=== PATIENT | female | born 1930 | race Caucasian/White ===

== ENCOUNTER 2017-09-25 04:02 | Inpatient (IN) | payer MEDICARE, BC ==
[2017-09-25] VITALS (13 sets, daily range): BP systolic 105–180; BP diastolic 55–81; PULSE 65–86; RESP 16–22; TEMP 97–98; O2SAT 94–100
[~2017-09-25] VITALS: Ht 170.2 cm; Wt 58.7 kg
[~2017-09-25 04:02] MED LIST: AMLO5TAB22 PO; ARIC5TAB PO; ATOR10 PO; CALC600T34 PO; COUM5TAB PO; METO25TA6 PO; TAB-TAB PO; VITA100032 PO
[2017-09-25] MEDS ORDERED: LIDOCAINE 1%/EPINEPHrine 1:100,000 SOLN 30 ML VIAL ONE (04:20)
[2017-09-25] MEDS ORDERED: ceFAZolin 2 GM PREMIX 50 ML IV ONE (04:30)
[2017-09-25] MEDS ORDERED: DIPHTH/TETANUS/ACEL PERTUSSIS (BOOSTER) 0.5 ML VIAL/PFS IM ONE (04:30)
--- NOTE | 2017-09-25 04:40 | PD ---
HPI Chief Complaint: Fall Time Seen by Provider: 04:08 Travel History International Travel<30 days: No Contact w/Intl Traveler<30days: No Traveled to known affect area: No History of Present Illness HPI 86-year-old female brought in by ambulance from her [facility] after being found in her living room with head trauma with significant amount of blood in her residence. It is unclear exactly what happened, and the patient does not recall what happened her, however there was also blood in her bathroom. She is on Coumadin. She denies having head pain or neck pain, however is complaining of moderate lower back pain. When her dressing was removed from her scalp that was applied by EMS, there was an obvious right parietal head wound with active arterial bleeding. I was having a difficult time controlling the bleeding with direct pressure as well as [id number] sutures, so trauma surgeon Dr. Lisa was called to the bedside and was able to control the bleeding and repair the scalp wound. Patient had significant amount of blood loss on the bandages applied by EMS as well as reported blood loss in her residence. Patient also lost a significant amount of blood while in the emergency department. Because of this 2 units of emergency release PRBCs were ordered as well as [address] [facility] cervical collar was also applied in the emergency department. Again the patient does not recall exactly what happened to her and her only complaint is lower back pain. PFSH Past Medical History Arthritis: Yes Blood Disorders: No Heart Rhythm Problems: Yes (ATRIAL FLUTTER) Cancer: Yes (COLON) Cardiovascular Problems: Yes High Cholesterol: Yes Chemotherapy: Yes (1996) Endocrine: No Gastrointestinal Disorders: No Genitourinary: Yes Hypertension: Yes Immune Disorder: No Implanted Vascular Access Dvce: Yes Musculoskeletal: Yes Neurologic: Yes Psychiatric: No Reproductive: No Respiratory: No Radiation Therapy: No Tetanus Vaccination: < 5 Years Influenza Vaccination: No Past Surgical History Abdominal Surgery: Yes (PARTIAL COLECTOMY ) Body Medical Devices: HEART VALVE (PIG),LOOP RECORDER Cardiac Surgery: Yes (VALVE REPL. 09/2007) Eye Surgery: Yes (CATARACT EXTR. BILAT.) Other Surgery: Yes Social History Alcohol Use: No Tobacco Use: No Substance Use: No Allergies-Medications (Allergen,Severity, Reaction): Coded Allergies: No Known Allergies (Verified , 05/28/14) Reported Meds & Prescriptions Reported Meds & Active Scripts Active Reported Metoprolol Succinate ER 24 HR (Metoprolol Succinate) 25 Mg Tab 25 Mg PO DAILY Citalopram (Citalopram Hydrobromide) 10 Mg Tab 10 Mg PO DAILY Mapap (Acetaminophen) 325 Mg Tab 325 Mg PO Q4-6H PRN Alprazolam 0.25 Mg Tab 0.25 Mg PO Q8H PRN Warfarin 2.5 Mg Tab 2.5 Mg PO DAILY Warfarin 5 Mg Tab 5 Mg PO DAILY Review of Systems Except as stated in HPI: all other systems reviewed are Neg Physical Exam Narrative GENERAL: Well-developed, frail, elderly appearing female, awake, keeps eyes closed, right parietal scalp wound with active bleeding. SKIN: Right parietal scalp wound with active arterial bleeding. HEAD: Skin exam as above. Normocephalic. EYES: Pupils equal, round, 3 mm, reactive to light. No scleral icterus. No injection or drainage. ENT: No nasal bleeding or discharge. Mucous membranes pink and moist. NECK: Trachea midline. No JVD. CARDIOVASCULAR: Regular rate and rhythm. RESPIRATORY: No accessory muscle use. Clear to auscultation. Breath sounds equal bilaterally. GASTROINTESTINAL: Abdomen soft, non-tender, nondistended. MUSCULOSKELETAL: No obvious deformities. No clubbing. No cyanosis. No edema. NEUROLOGICAL: Awake and alert. No obvious cranial nerve deficits. Motor grossly within normal limits. Normal speech. PSYCHIATRIC: Appropriate mood and affect; insight and judgment normal. Data Data Last Documented VS Vital Signs Date Time Temp Pulse Resp B/P (MAP) Pulse Ox O2 Delivery O2 Flow Rate FiO2 09/25/17 06:58 71 18 121/55 (77) 99 09/25/17 06:19 Room Air 09/25/17 05:58 97.7 Orders Orders Lidocai-Epi 1%-1:100,000 Inj (Xylocaine- (09/25/17 04:20) Type And Screen (09/25/17 04:23) I-Stat Profile (09/25/17 04:28) Complete Blood Count With Diff (09/25/17 04:28) Prothrombin Time / Inr (Pt) (09/25/17 04:28) Act Partial Throm Time (Ptt) (09/25/17 04:28) Ct Brain W/O Iv Contrast(Rout) (09/25/17 04:28) Ct Cerv Spine W/O Contrast (09/25/17 04:28) Ct Abd/Pel W Iv Contrast(Rout) (09/25/17 04:28) Ct Thorax/ Chest W Iv Contrast (09/25/17 04:28) Ct Thor Spine W Iv Contrast (09/25/17 04:28) Ct Lumb Spine W Iv Contrast (09/25/17 04:28) Iv Access Insert/Monitor (09/25/17 04:28) Ecg Monitoring (09/25/17 04:28) Oximetry (09/25/17 04:28) Oxygen Administration (09/25/17 04:28) Cefazolin 2 Gm Premix (Ancef 2 Gm Premix (09/25/17 04:30) Yyhi-Qcg-Adkcbf (Booster) Inj (Boostrix (09/25/17 04:30) Sodium Chloride 0.9% Flush (Ns Flush) (09/25/17 04:30) Fresh Frozen Plasma (Ffp) (09/25/17 04:23) Iohexol 350 Inj (Omnipaque 350 Inj) (09/25/17 05:18) Morphine Inj (Morphine Inj) (09/25/17 06:00) Red Blood Cells (Rbc) (09/25/17 06:44) Labs Laboratory Tests Test 09/25/17 04:40 White Blood Count 11.0 TH/MM3 Red Blood Count 3.92 MIL/MM3 Hemoglobin 12.7 GM/DL Bedside Hemoglobin 11.9 G/DL Hematocrit 36.9 % Bedside Hematocrit 35.0 % Mean Corpuscular Volume 94.3 FL Mean Corpuscular Hemoglobin 32.4 PG Mean Corpuscular Hemoglobin Concent 34.3 % Red Cell Distribution Width 13.6 % Platelet Count 195 TH/MM3 Mean Platelet Volume 8.0 FL Neutrophils (%) (Auto) 83.6 % Lymphocytes (%) (Auto) 8.3 % Monocytes (%) (Auto) 5.9 % Eosinophils (%) (Auto) 1.6 % Basophils (%) (Auto) 0.6 % Neutrophils # (Auto) 9.2 TH/MM3 Lymphocytes # (Auto) 0.9 TH/MM3 Monocytes # (Auto) 0.6 TH/MM3 Eosinophils # (Auto) 0.2 TH/MM3 Basophils # (Auto) 0.1 TH/MM3 CBC Comment DIFF FINAL Differential Comment Prothrombin Time 36.1 SEC Prothromb Time International Ratio 3.6 RATIO Activated Partial Thromboplast Time 33.6 SEC Bedside Sodium 141 MMOL/L Bedside Potassium 3.8 MMOL/L Bedside Chloride 102 MMOL/L Bedside Blood Urea Nitrogen 24 MG/DL Bedside Creatinine 1.1 MG/DL Bedside Glucose 117 MG/DL [facility] Medical Decision Making Medical Screen Exam Complete: Yes Emergency Medical Condition: Yes Differential Diagnosis Intracranial hemorrhage, hemorrhagic shock, vertebral injury, intrathoracic trauma, intra-abdominal trauma Narrative Course 5:50 AM: The patient's son Armand Cornejo is at the bedside and was made aware of the patient's clinical condition. He tells me that [facility] are nursing rounds at her facility every 2 hours to check on her. The patient was given tetanus and Ancef. Patient was written for 2 units of emergency release PRBCs. Scalp wound was repaired by trauma surgeon Dr. Lisa shortly after the patient arrived to the emergency department with hemostasis. Patient's INR came back at 3.6. Patient' s son tells me that she has a porcine heart valve. Because hemostasis has been achieved and there is no intracranial hemorrhage, I decided to not give the FFP. Initial vital signs show heart rate 77, blood pressure 140/63, pulse ox 100% on room air. CBC: WBC 11, hemoglobin 11.9, hematocrit 35, platelets 195. BMP is essentially unremarkable. INR is 3.6. CT brain: CONCLUSION: 1. No acute findings in the brain. 2. Right parietal scalp injury with some gas, but no radiopaque foreign bodies. No skull fracture seen. CT cervical spine: CONCLUSION: No evidence of compression deformity or spondylolisthesis. Advanced discogenic degenerative changes C3-7. CT thorax: CONCLUSION: No acute findings in the chest. No evidence of pleural effusion or pneumothorax. CT abdomen pelvis: CONCLUSION: 1. No acute findings; the solid organs of the abdomen/pelvis are intact. 2. 5 cm fluid density structure adjacent to the urinary bladder superiorly and to the left, possibly representing a bladder diverticulum. CT thoracic spine: CONCLUSION: 1. No evidence of compression deformity or spondylolisthesis. CT lumbar spine: CONCLUSION: 1. Advanced degenerative changes throughout the lumbar spine with associated moderately severe left scoliosis and with spinal stenosis due to bony hypertrophy at the L3-4 and L4-5 levels. 2. No evidence of acute bony injury. Patient has remained hemodynamically stable. She will be admitted for further treatment and evaluation and serial hemoglobins. The patient is a patient of Dr. Greene who admits his own patients. I discussed the case with his PA LAURO who will admit the patient to their service. Diagnosis Primary Impression: Head injury Qualified Codes: S09.90XA - Unspecified injury of head, initial encounter Additional Impressions: Scalp laceration Qualified Codes: S01.01XA - Laceration without foreign body of scalp, initial encounter Acute hemorrhage Fall Qualified Codes: W19.XXXA - Unspecified fall, initial encounter Admitting Information Admitting Physician Requests: Admit Socrates Dang MD Sep 25, 2017 04:40
--- NOTE | 2017-09-25 05:01 | RADRPT ---
EXAM DATE/TIME: 09/25/2017 04:47 [facility] COMPARISON: No previous studies available for comparison. INDICATIONS : Trauma, fall. RADIATION DOSE: 66.91 CTDIvol (mGy) ; Tabletop CT Head MEDICAL HISTORY : Cardiovascular disease. Carcinoma, colon. Osteoporosis. SURGICAL HISTORY : None. ENCOUNTER: Initial ACUITY: 1 day PAIN SCALE: Non-responsive LOCATION: cranial TECHNIQUE: Multiple contiguous axial images were obtained of the head. Using automated exposure control and adj ustment of the mA and/or kV according to patient size, radiation dose was kept as low as reasonably a chievable to obtain optimal diagnostic quality images. DICOM format image data is available electro nically for review and comparison. FINDINGS: CEREBRUM: The ventricles are normal for age. There is asymmetric enlargement of the occipital horn on the left side probably related to old ischemic event. No evidence of midline shift, mass lesion, hemorrhage o r acute infarction. No extra-axial fluid collections are seen. POSTERIOR FOSSA: The cerebellum and brainstem are intact. The 4th ventricle is midline. The cerebellopontine angle i s unremarkable. EXTRACRANIAL: The visualized portion of the orbits is intact. SKULL: There is a thickening of the scalp 8 convexity parietal region with some small flecks of gas, but no radiopaque foreign bodies. The calvaria is intact. No evidence of skull fracture. CONCLUSION: 1. No acute findings in the brain. 2. Right parietal scalp injury with some gas, but no radiopaque foreign bodies. No skull fracture se en. Radhames Santana MD on September 25, 2017 at 4:58 Board Certified Radiologist. This report was verified electronically.
--- NOTE | 2017-09-25 05:04 | RADRPT ---
EXAM DATE/TIME: 09/25/2017 04:47 [facility] COMPARISON: No previous studies available for comparison. INDICATIONS : Trauma, fall. RADIATION DOSE: 16.96 CTDIvol (mGy) MEDICAL HISTORY : Cardiovascular disease. Carcinoma, colon. Osteoporosis. SURGICAL HISTORY : None. ENCOUNTER: Initial ACUITY: 1 day PAIN SCALE: Non-responsive LOCATION: neck TECHNIQUE: Volumetric scanning of the cervical spine was performed. Multiplanar reconstructions in the sagittal, coronal and oblique axial planes were performed. Using automated exposure control and adjustment o f the mA and/or kV according to patient size, radiation dose was kept as low as reasonably achievable to obtain optimal diagnostic quality images. DICOM format image data is available electronically f or review and comparison. FINDINGS: There is advanced discogenic degenerative changes in the mid and lower cervical region with disc spac e narrowing and prominent osteophytes both anterior and posterior from C3-C7. No evidence of spondyl olisthesis. The atlantoaxial articulation is intact. Normal alignment of the facet joints with mode rate severity degenerative changes. C2-C3: No fracture seen. The neural foramina are patent. C3-C4: No fracture seen. The neural foramina are patent. C4-C5: No fracture seen. The neural foramina are patent. C5-C6: No fracture seen. Severe right-sided bony neural foraminal stenosis and moderate severity left-sided stenosis. C6-C7: No fracture seen. Moderate bilateral bony neural foraminal stenosis. C7-T1: No fracture seen. The neural foramina are patent. CONCLUSION: No evidence of compression deformity or spondylolisthesis. Advanced discogenic degenerative changes C3-7. Radhames Santana MD on September 25, 2017 at 5:01 Board Certified Radiologist. This report was verified electronically.
[2017-09-25 05:11] LABS: AUTOMATED NEUTROPHIL # 9.2 TH/MM3 (1.8-7.7); BASOPHIL # 0.1 TH/MM3 (0-0.2); BASOPHIL % 0.6 % (0.0-2.0); EOSINOPHIL # 0.2 TH/MM3 (0-0.4); EOSINOPHIL % 1.6 % (0.0-4.0); HEMATOCRIT 36.9 % (35.0-46.0); HEMOGLOBIN 12.7 GM/DL (11.6-15.3); LYMPH % 8.3 % (9.0-44.0); LYMPHOCYTE # 0.9 TH/MM3 (1.0-4.8); MEAN CELL VOLUME 94.3 FL (80.0-100.0); MEAN CORPUSCULAR HEMOGLOBIN 32.4 PG (27.0-34.0); MEAN CORPUSCULAR HGB CONC 34.3 % (32.0-36.0); MONO % 5.9 % (0.0-8.0); MONOCYTE # 0.6 TH/MM3 (0-0.9); NEUT % 83.6 % (16.0-70.0); PLATELET COUNT 195 TH/MM3 (150-450); RED BLOOD COUNT 3.92 MIL/MM3 (4.00-5.30); RED CELL DISTRIBUTION WIDTH 13.6 % (11.6-17.2)
[2017-09-25] MEDS ORDERED: IOHEXOL 350 MG/ML 10 ML VIAL (for RAD DIAG) IVCONTRAST ONE (05:18)
[2017-09-25 05:24] LABS: INTERNATIONAL NORMALIZED RATIO 3.6 RATIO; PROTHROMBIN TIME - PATIENT 36.1 SEC (9.8-11.6)
--- NOTE | 2017-09-25 05:35 | RADRPT ---
EXAM DATE/TIME: 09/25/2017 05:16 [facility] COMPARISON: No previous studies available for comparison. INDICATIONS : Trauma, fall. IV CONTRAST: 100 cc Omnipaque 350 (iohexol) IV ; Cumulative dose for multiple exams. RADIATION DOSE: 15.20 CTDIvol (mGy) MEDICAL HISTORY : Cardiovascular disease. Hypertension. Osteoporosis. SURGICAL HISTORY : Pacemaker. Valve replacement. Colectomy. ENCOUNTER: Initial ACUITY: 1 day PAIN SCALE: Non-responsive LOCATION: chest TECHNIQUE: Volumetric scanning of the chest was performed. Using automated exposure control and adjustment of t he mA and/or kV according to patient size, radiation dose was kept as low as reasonably achievable to obtain optimal diagnostic quality images. DICOM format image data is available electronically for review and comparison. Follow-up recommendations for detected pulmonary nodules are based at a minimum on nodule size and pa tient risk factors according to Fleischner Society Guidelines. FINDINGS: The scan is performed with the patient's arms down. LUNGS: There is no consolidation or pneumothorax. No concerning pulmonary nodule is visualized. Biapical p leural thickening/scarring. 5 mm calcified granuloma in the right upper lung. PLEURA: There is no pleural thickening or pleural effusion. MEDIASTINUM: The heart and great vessels demonstrate no acute abnormality. There is no mediastinal or hilar lymph adenopathy. There are 2 nonenlarged calcified precarinal lymph nodes. AXILLAE: Within normal limits. No lymphadenopathy. SKELETAL: Within normal limits for patient age. MISCELLANEOUS: Evidence of prior median sternotomy and aortic valve prosthesis. CONCLUSION: No acute findings in the chest. No evidence of pleural effusion or pneumothorax. Radhames Santana MD on September 25, 2017 at 5:31 Board Certified Radiologist. This report was verified electronically.
--- NOTE | 2017-09-25 05:39 | RADRPT ---
EXAM DATE/TIME: 09/25/2017 05:16 [facility] COMPARISON: No previous studies available for comparison. INDICATIONS : Trauma, fall. IV CONTRAST: 100 cc Omnipaque 350 (iohexol) IV ; Cumulative dose for multiple exams. ORAL CONTRAST: No oral contrast ingested. RADIATION DOSE: 15.20 CTDIvol (mGy) ; Combined studies - Thorax/Abdomen/Pelvis MEDICAL HISTORY : Cardiovascular disease. Carcinoma, colon. Osteoporosis. SURGICAL HISTORY : Valve replacement. Colectomy. Hip replacement. ENCOUNTER: Initial ACUITY: 1 day PAIN SCALE: Non-responsive LOCATION: abdomen TECHNIQUE: Volumetric scanning of the abdomen and pelvis was performed. Using automated exposure control and ad justment of the mA and/or kV according to patient size, radiation dose was kept as low as reasonably achievable to obtain optimal diagnostic quality images. DICOM format image data is available electro nically for review and comparison. FINDINGS: LOWER LUNGS: The visualized lower lungs are clear. LIVER: Homogeneous density without solid lesion. 2.9 cm smooth margined cyst in the medial segment of the l eft lobe of the liver. Several other subcentimeter cysts. There is no dilation of the biliary tree. No calcified gallstones. SPLEEN: Normal size without lesion. PANCREAS: Within normal limits. KIDNEYS: Normal in size and shape. There is no mass, stone or hydronephrosis. 1.7 cm cortical cyst medial up per pole right kidney. ADRENAL GLANDS: Within normal limits. VASCULAR: There is no aortic aneurysm. BOWEL/MESENTERY: No dilated loops of small or large bowel. No evidence of free fluid or free air. ABDOMINAL WALL: Within normal limits. RETROPERITONEUM: There is no lymphadenopathy. BLADDER: No wall thickening or mass. There is a 5.2 cm smooth margin fluid density structure adjacent to the superior left urinary bladder, possibly representing a bladder diverticulum. REPRODUCTIVE: Within normal limits. INGUINAL: There is no lymphadenopathy or hernia. MUSCULOSKELETAL: Moderate curvature of the lumbar spine convex to the left with associated degenerative changes of the endplates and posterior elements. Right total hip arthroplasty. CONCLUSION: 1. No acute findings; the solid organs of the abdomen/pelvis are intact. 2. 5 cm fluid density structure adjacent to the urinary bladder superiorly and to the left, possibly representing a bladder diverticulum. Radhames Santana MD on September 25, 2017 at 5:34 Board Certified Radiologist. This report was verified electronically.
[2017-09-25] MEDS ORDERED: MORPHINE SULFATE 2 MG/ML INJ IV PUSH ONE (06:00)
[2017-09-25] MEDS ORDERED: MAPA325T PO (06:29)
[2017-09-25] MEDS ORDERED: WARF-18 PO (06:29)
[2017-09-25] MEDS ORDERED: METO1TAB42 PO (06:29)
[2017-09-25] MEDS ORDERED: ALPR0.25 PO (06:29)
[2017-09-25] MEDS ORDERED: WARF-23 PO (06:29)
[2017-09-25] MEDS ORDERED: CITA10TA4 PO (06:29)
--- NOTE | 2017-09-25 06:39 | RADRPT ---
EXAM DATE/TIME: 09/25/2017 05:16 [facility] COMPARISON: No previous studies available for comparison. INDICATIONS : Trauma, fall. IV CONTRAST: 100 cc Omnipaque 350 (iohexol) IV ; Cumulative dose for multiple exams. RADIATION DOSE: CTDIvol (mGy) ; Reconstructed from previous dataset, no dose MEDICAL HISTORY : Carcinoma, colon. Hypertension. Osteoporosis. SURGICAL HISTORY : None. ENCOUNTER: Initial ACUITY: 1 day PAIN SCALE: Non-responsive LOCATION: Paraspinal TECHNIQUE: Volumetric scanning of the lumbar spine was performed. Multiplanar reconstructions in the sagittal, coronal and oblique axial planes were performed. Using automated exposure control and adjustment of the mA and/or kV according to patient size, radiation dose was kept as low as reasonably achievable t o obtain optimal diagnostic quality images. DICOM format image data is available electronically for review and comparison. FINDINGS: There is a moderate severity scoliosis convex toward the left measuring 42. There are associated de generative changes with loss of interspace height, sclerosis of the endplates with irregularity, and vacuum phenomenon in the narrowest portions of the interspaces. No evidence of compression fracture. Advanced degenerative changes in the posterior elements. There is moderate spinal stenosis at the L3-4 level, severe spinal stenosis at L4-5. Broad-based bulging or protrusion of disc is present at L5-S1. CONCLUSION: 1. Advanced degenerative changes throughout the lumbar spine with associated moderately severe left s coliosis and with spinal stenosis due to bony hypertrophy at the L3-4 and L4-5 levels. 2. No evidence of acute bony injury. Radhames Santana MD on September 25, 2017 at 6:33 Board Certified Radiologist. This report was verified electronically.
--- NOTE | 2017-09-25 06:40 | RADRPT ---
EXAM DATE/TIME: 09/25/2017 05:16 [facility] COMPARISON: No previous studies available for comparison. INDICATIONS : Trauma, fall. IV CONTRAST: 100 cc Omnipaque 350 (iohexol) IV ; Cumulative dose for multiple exams. RADIATION DOSE: CTDIvol (mGy) ; Reconstructed from previous dataset, no dose MEDICAL HISTORY : Carcinoma, colon. Hypertension. Osteoporosis. SURGICAL HISTORY : None. ENCOUNTER: Initial ACUITY: 1 day PAIN SCALE: Non-responsive LOCATION: Paraspinal TECHNIQUE: Volumetric scanning of the thoracic spine was performed. Multiplanar reconstructions in the sagittal , coronal and oblique axial planes were performed. Using automated exposure control and adjustment o f the mA and/or kV according to patient size, radiation dose was kept as low as reasonably achievable to obtain optimal diagnostic quality images. DICOM format image data is available electronically fo r review and comparison. FINDINGS: There is a mild curvature of the lower thoracic spine convex towards the left. Prominent left-sided bridging paravertebral ossification is present at the T. 10-11 level vertebral body height is maintai earl. No evidence of compression fracture or spondylolisthesis. The pedicles are intact. The verteb ral junctions are intact. CONCLUSION: 1. No evidence of compression deformity or spondylolisthesis. Radhames Santana MD on September 25, 2017 at 6:38 Board Certified Radiologist. This report was verified electronically.
[2017-09-25] MEDS ORDERED: NALOXONE HCL 0.4 MG/ML AMP IV PUSH PRN (08:00)
[2017-09-25] MEDS ORDERED: PILL SPLITTER OTHER PRN (08:15)
[2017-09-25] MEDS ORDERED: ACETAMINOPHEN 325 MG TAB PO PRN (09:00)
[2017-09-25] MEDS ORDERED: SENNOSIDES 8.6 MG TAB PO PRN (09:00)
[2017-09-25] MEDS ORDERED: BISACODYL 10 MG SUPP RECTAL PRN (09:00)
[2017-09-25] MEDS ORDERED: MAGNESIUM HYDROXIDE SUSP 30 ML CUP PO PRN (09:00)
[2017-09-25] MEDS ORDERED: LACTULOSE SYRUP 20 GM/30 ML CUP PO PRN (09:00)
[2017-09-25] MEDS ORDERED: ONDANSETRON HCL 4 MG/2 ML VIAL IVP PRN (09:00)
[2017-09-25] MEDS: DOCUSATE SODIUM 50 MG/SENNA 8.6 MG TAB PO SCH ×2 (10:02→20:52)
[2017-09-25] MEDS: METOPROLOL SUCCINATE 25 MG EXTENDED RELEASE TAB PO SCH (10:02)
[2017-09-25] MEDS: CITALOPRAM HYDROBROMIDE 20 MG TAB PO SCH (10:03)
[2017-09-25] MEDS: SODIUM CHLOR 0.9% 1000 ML INJ 1,000 ML IV SCH ×2 (10:05→18:41)
--- NOTE | 2017-09-25 13:00 | HHI.HP ---
History of Present Illness Service [facility] Primary Care Physician Rod Greene, DO Admission Diagnosis Head injury, scalp laceration with hemorrhage, fall Diagnoses: (1) Coumadin toxicity Diagnosis: Secondary (2) H/O aortic valve replacement Diagnosis: Secondary (3) Head injury Diagnosis: Principal (4) Scalp laceration Diagnosis: Principal (5) Dementia Diagnosis: Secondary (6) Acute hemorrhage Diagnosis: Principal (7) Fall Diagnosis: Principal History of Present Illness Found down and brought to ED with scalp laceration and bleeding from scalp. Head CT R/O SDH. Bleeding treated int the ED by surgeon with suturing of laceration. Monitoring HG after blood loss eith no indication for transfusion at this time. Monitoring closely. Review of Systems ROS Limitations: Clinical Condition (Lying on ED stretcher without complaints) , Other (Sutures intact right scalp) Constitutional: DENIES: Diaphoretic episodes, Fatigue, Fever, Weight gain, Weight loss, Chills, Dizziness, Change in appetite, Night Sweats Ears, nose, mouth, throat: DENIES: Tinnitus, Hearing loss, Vertigo, Nasal discharge, Oral lesions, Throat pain, Hoarseness, Ear Pain, Running Nose, Epistaxis, Sinus Pain, Toothache, Odynophagia Respiratory: DENIES: Apneas, Cough, Snoring, Wheezing, Hemoptysis, Sputum production, Shortness of breath Cardiovascular: DENIES: Chest pain, Palpitations, Syncope, Dyspnea on Exertion , PND, Lower Extremity Edema, Orthopnea, Claudication Gastrointestinal: DENIES: Abdominal pain, Black stools, Bloody stools, Constipation, Diarrhea, Nausea, Vomiting, Difficulty Swallowing, Anorexia Musculoskeletal: DENIES: Joint pain, Muscle aches, Stiffness, Joint Swelling, Back pain, Neck pain Integumentary: DENIES: Abnormal pigmentation, Pruritus, Rash, Nail changes, Breast masses, Breast skin changes, Nipple discharge Hematologic/lymphatic: DENIES: Bruising, Lymphadenopathy Psychiatric: DENIES: Anxiety, Confusion, Mood changes, Depression, Hallucinations, Agitation, Suicidal Ideation, Homicidal Ideation, Delusions Past Family Social History Allergies: Coded Allergies: No Known Allergies (Verified , 05/28/14) Past Medical History S/P valve replacement surgery and on Coumadin; Dementia by history Reported Medications Current Medications Medications (Trade) Dose Ordered Sig/Lisset Route Start Time Stop Time Status Last Admin (NS Flush) 2 ml UNSCH PRN IVF 09/25/17 04:30 Sodium Chloride 1,000 ml @ 100 mls/hr Q10H IV 09/25/17 07:54 09/25/17 10:05 (Tylenol) 650 mg Q4H PRN PO 09/25/17 09:00 (Zofran Inj) 4 mg Q6H PRN IVP 09/25/17 09:00 (Narcan Inj) 0.4 mg UNSCH PRN IV PUSH 09/25/17 08:00 (Marylin-Colace) 1 tab BID PO 09/25/17 09:00 09/25/17 10:02 (Milk Of Magnesia Liq) 30 ml Q12H PRN PO 09/25/17 09:00 (Senokot) 17.2 mg Q12H PRN PO 09/25/17 09:00 (Dulcolax Supp) 10 mg DAILY PRN RECTAL 09/25/17 09:00 (Lactulose Liq) 30 ml DAILY PRN PO 09/25/17 09:00 (Xanax) 0.25 mg Q8H PRN PO 09/25/17 09:00 (CeleXA) 10 mg DAILY PO 09/25/17 09:00 09/25/17 10:03 (Toprol Xl) 25 mg DAILY PO 09/25/17 09:00 09/25/17 10:02 (Pill Splitter) 1 ea UNSCH PRN OTHER 09/25/17 08:15 Family History Unable to collect on adm as no family members present to answer questions. Social History Denies Cigs, ETOH. Resides with family. Physical Exam Vital Signs Vital Signs Date Time Temp Pulse Resp B/P (MAP) Pulse Ox O2 Delivery O2 Flow Rate FiO2 09/25/17 11:49 97.6 65 16 113/74 (87) 97 09/25/17 11:04 65 18 105/55 (72) 99 Room Air 09/25/17 09:05 70 18 115/63 (80) 99 Room Air 09/25/17 06:58 71 18 121/55 (77) 99 09/25/17 06:19 98 Room Air 09/25/17 06:19 98 Room Air 09/25/17 05:58 97.7 70 18 134/62 100 09/25/17 05:11 72 18 115/67 (83) 100 09/25/17 04:45 74 18 117/56 (76) 100 09/25/17 04:38 97.0 86 18 138/75 98 09/25/17 04:18 85 18 100 09/25/17 04:08 77 22 140/63 (88) 100 Physical Exam GENERAL: This is a well-nourished, well-developed patient, in no apparent distress. SKIN: Sutured laceration right scalp. HEAD: Traumatic with intact sutures. Normocephalic. EYES: Pupils equal round and reactive. Extraocular motions intact. No scleral icterus. No injection or drainage. ENT: Nose without bleeding, purulent drainage or septal hematoma. Throat without erythema, tonsillar hypertrophy or exudate. Uvula midline. Airway patent. NECK: Trachea midline. No JVD or lymphadenopathy. Supple, nontender, no meningeal signs. CARDIOVASCULAR: Regular rate and rhythm with 2/6 systolic click. RESPIRATORY: Clear to auscultation. Breath sounds equal bilaterally. No wheezes , rales, or rhonchi. GASTROINTESTINAL: Abdomen soft, non-tender, nondistended. No hepato-splenomegaly , or palpable masses. No guarding. MUSCULOSKELETAL: Extremities without clubbing, cyanosis, or edema. No joint tenderness, effusion, or edema noted. No calf tenderness. Negative Homans sign bilaterally. NEUROLOGICAL: Awake and lethargic. Cranial nerves grossly intact Laboratory Laboratory Tests Test 09/25/17 04:40 White Blood Count 11.0 Red Blood Count 3.92 Hemoglobin 12.7 Bedside Hemoglobin 11.9 Hematocrit 36.9 Bedside Hematocrit 35.0 Mean Corpuscular Volume 94.3 Mean Corpuscular Hemoglobin 32.4 Mean Corpuscular Hemoglobin Concent 34.3 Red Cell Distribution Width 13.6 Platelet Count 195 Mean Platelet Volume 8.0 Neutrophils (%) (Auto) 83.6 Lymphocytes (%) (Auto) 8.3 Monocytes (%) (Auto) 5.9 Eosinophils (%) (Auto) 1.6 Basophils (%) (Auto) 0.6 Neutrophils # (Auto) 9.2 Lymphocytes # (Auto) 0.9 Monocytes # (Auto) 0.6 Eosinophils # (Auto) 0.2 Basophils # (Auto) 0.1 CBC Comment DIFF FINAL Differential Comment Prothrombin Time 36.1 Prothromb Time International Ratio 3.6 Activated Partial Thromboplast Time 33.6 Bedside Sodium 141 Bedside Potassium 3.8 Bedside Chloride 102 Bedside Blood Urea Nitrogen 24 Bedside Creatinine 1.1 Bedside Glucose 117 Result Diagram: 09/25/17439 Imaging Last Impressions Thoracic Spine CT 09/25/17427 Signed Impressions: Service Date/Time: Monday, September 25, 2017 05:16 - CONCLUSION: 1. No evidence of compression deformity or spondylolisthesis. Radhames Santana MD Lumbar Spine CT 09/25/17427 Signed Impressions: Service Date/Time: Monday, September 25, 2017 05:16 - CONCLUSION: 1. Advanced degenerative changes throughout the lumbar spine with associated moderately severe left scoliosis and with spinal stenosis due to bony hypertrophy at the L3-4 and L4-5 levels. 2. No evidence of acute bony injury. Radhames Santana MD Head CT 09/25/17427 Signed Impressions: Service Date/Time: Monday, September 25, 2017 04:47 - CONCLUSION: 1. No acute findings in the brain. 2. Right parietal scalp injury with some gas, but no radiopaque foreign bodies. No skull fracture seen. Radhames Santana MD Chest CT 09/25/17427 Signed Impressions: Service Date/Time: Monday, September 25, 2017 05:16 - CONCLUSION: No acute findings in the chest. No evidence of pleural effusion or pneumothorax. Radhames Santana MD Cervical Spine CT 09/25/17427 Signed Impressions: Service Date/Time: Monday, September 25, 2017 04:47 - CONCLUSION: No evidence of compression deformity or spondylolisthesis. Advanced discogenic degenerative changes C3-7. Radhames Santana MD Abdomen/Pelvis CT 09/25/17427 Signed Impressions: Service Date/Time: Monday, September 25, 2017 05:16 - CONCLUSION: 1. No acute findings; the solid organs of the abdomen/pelvis are intact. 2. 5 cm fluid density structure adjacent to the urinary bladder superiorly and to the left, possibly representing a bladder diverticulum. Radhames Santana MD Capkevoni VTE Risk Assessment Caprini VTE Risk Assessment: Mod/High Risk (score >= 2) VTE Pharm Contraindication: Coagulopathy,INR elevated Caprini Risk Assessment Model Point Value = 1 Point Value = 2 Point Value = 3 Point Value = 5 Age 41-60 Minor surgery BMI > 25 kg/m2 Swollen legs Varicose veins or History of unexplained or recurrent spontaneous Oral contraceptives or hormone replacement Sepsis (< 1 month) Serious lung disease, including pneumonia (< 1 month) Abnormal pulmonary function Acute myocardial infarction Congestive heart failure (< 1 month) History of inflammatory bowel disease Medical patient at bed rest Age 61-74 Arthroscopic surgery Major open surgery (> 45 min) Laparoscopic surgery (> 45 min) Malignancy Confined to bed (> 72 hours) Immobilizing plaster cast Central venous access Age >= 75 History of VTE Family history of VTE Factor V Leiden Prothrombin [id number] Lupus anticoagulant Anticardiolipin antibodies Elevated serum homocysteine Heparin-induced thrombocytopenia Other congenital or acquired thrombophilia Stroke (< 1 month) Elective arthroplasty Hip, pelvis, or leg fracture Acute spinal cord injury (< 1 month) Prophylaxis Regimen Total Risk Factor Score Risk Level Prophylaxis Regimen 0-1 Low Early ambulation 2 Moderate Order ONE of the following: *Sequential Compression Device (SCD) *Heparin 5000 units SQ BID 3-4 Higher Order ONE of the following medications: *Heparin 5000 units SQ TID *Enoxaparin/Lovenox 40 mg SQ daily (WT < 150 kg, CrCl > 30 mL/min) *Enoxaparin/Lovenox 30 mg SQ daily (WT < 150 kg, CrCl > 10-29 mL/min) *Enoxaparin/Lovenox 30 mg SQ BID (WT < 150 kg, CrCl > 30 mL/min) AND/OR *Sequential Compression Device (SCD) 5 or more Highest Order ONE of the following medications: *Heparin 5000 units SQ TID (Preferred with Epidurals) *Enoxaparin/Lovenox 40 mg SQ daily (WT < 150 kg, CrCl > 30 mL/min) *Enoxaparin/Lovenox 30 mg SQ daily (WT < 150 kg, CrCl > 10-29 mL/min) *Enoxaparin/Lovenox 30 mg SQ BID (WT < 150 kg, CrCl > 30 mL/min) AND *Sequential Compression Device (SCD) Assessment and Plan Problem List: (1) Scalp laceration ICD Codes: S01.01XA - Laceration without foreign body of scalp, initial encounter Status: Acute Plan: Monitor neuro checks and hold Coumadin for now (2) Acute hemorrhage ICD Codes: R58 - Hemorrhage, not elsewhere classified Status: Acute Plan: Monitor HG closely (3) Dementia ICD Codes: F03.90 - Dementia Status: Acute Plan: Cont home meds and monitor (4) Coumadin toxicity ICD Codes: T45.511A - Poisoning by anticoagulants, accidental (unintentional), initial encounter Plan: Hold Coumadin until INR 3 or less. Assessment and Plan S/P fall with hemorrhage from laceration now sutured. Head CT R/O SDH. Monitoring closely. Coumadin on hold since INR is elevated. F/U in the AM. Discussed Condition With Patient Discharge Planning HBOme when stable and Hg stable post bleeding and back in Coumadin Problem Qualifiers (1) Coumadin toxicity: Qualified Codes: T45.511A - Poisoning by anticoagulants, accidental ( unintentional), initial encounter (2) Head injury: Qualified Codes: S09.90XA - Unspecified injury of head, initial encounter (3) Scalp laceration: Qualified Codes: S01.01XA - Laceration without foreign body of scalp, initial encounter (4) Dementia: Qualified Codes: G30.1 - Alzheimer's disease with late onset; F02.80 - Dementia in other diseases classified elsewhere without behavioral disturbance (5) Fall: Qualified Codes: W19.XXXA - Unspecified fall, initial encounter Gabriel Gardner Sep 25, 2017 13:00
[2017-09-25] MEDS: ALPRAZolam 0.25 MG TAB PO PRN ×2 (14:40→22:35)
[2017-09-26] VITALS (7 sets, daily range): BP systolic 117–171; BP diastolic 64–87; PULSE 59–89; RESP 17–18; TEMP 97.2–98.4; O2SAT 94–98
[2017-09-26] MEDS: SODIUM CHLOR 0.9% 1000 ML INJ 1,000 ML IV SCH ×3 (05:00→23:54)
[2017-09-26 06:45] LABS: AUTOMATED NEUTROPHIL # 7.9 TH/MM3 (1.8-7.7); BASOPHIL % 0.2 % (0.0-2.0); EOSINOPHIL % 0.3 % (0.0-4.0); HEMATOCRIT 36.1 % (35.0-46.0); HEMOGLOBIN 12.7 GM/DL (11.6-15.3); LYMPH % 7.8 % (9.0-44.0); LYMPHOCYTE # 0.7 TH/MM3 (1.0-4.8); MEAN CELL VOLUME 91.3 FL (80.0-100.0); MEAN CORPUSCULAR HEMOGLOBIN 32.2 PG (27.0-34.0); MEAN CORPUSCULAR HGB CONC 35.3 % (32.0-36.0); MONO % 7.2 % (0.0-8.0); MONOCYTE # 0.7 TH/MM3 (0-0.9); NEUT % 84.5 % (16.0-70.0); PLATELET COUNT 123 TH/MM3 (150-450); RED BLOOD COUNT 3.95 MIL/MM3 (4.00-5.30); RED CELL DISTRIBUTION WIDTH 14.4 % (11.6-17.2); WHITE BLOOD COUNT 9.3 TH/MM3 (4.0-11.0)
[2017-09-26 07:08] LABS: PROTHROMBIN TIME - PATIENT 30.2 SEC (9.8-11.6)
[2017-09-26 07:13] LABS: ALBUMIN 3.2 GM/DL (3.4-5.0); AST (GOT) 38 U/L (15-37); BICARBONATE 26.8 MEQ/L (21.0-32.0); BLOOD UREA NITROGEN 21 MG/DL (7-18); CALCIUM 8.7 MG/DL (8.5-10.1); CHLORIDE 105 MEQ/L (98-107); CREATININE 1.05 MG/DL (0.50-1.00); GLOMERULAR FILTRATION RATE 49 ML/MIN (>89); GLUCOSE,RANDOM 92 MG/DL (74-106); SODIUM (NA) 141 MEQ/L (136-145)
[2017-09-26 07:17] LABS: ALKALINE PHOSPHATASE 41 U/L (45-117); ALT (GPT) 19 U/L (10-53); TOTAL BILIRUBIN ADULT 3.3 MG/DL (0.2-1.0); TOTAL PROTEIN 5.7 GM/DL (6.4-8.2)
[2017-09-26] MEDS: CITALOPRAM HYDROBROMIDE 20 MG TAB PO SCH (08:52)
[2017-09-26] MEDS: DOCUSATE SODIUM 50 MG/SENNA 8.6 MG TAB PO SCH ×2 (08:52→21:17)
[2017-09-26] MEDS: METOPROLOL SUCCINATE 25 MG EXTENDED RELEASE TAB PO SCH (08:52)
[2017-09-26] MEDS: ALPRAZolam 0.25 MG TAB PO PRN (08:52)
--- NOTE | 2017-09-26 14:00 | HHI.PR ---
Subjective Remarks She is resting comfortably in bed. No family at bedside but I was informed yesterday she was trying to climb out of bed and family noted this was not her usual affect. Neuro consult requested. Objective Vital Signs Date Time Temp Pulse Resp B/P (MAP) Pulse Ox O2 Delivery O2 Flow Rate FiO2 09/26/17 12:40 98.4 69 18 138/64 (88) 98 09/26/17 08:44 97.7 67 18 168/82 (110) 98 09/26/17 06:27 78 171/87 (115) 09/26/17 05:21 98.0 86 18 94 09/26/17 00:36 97.9 89 18 144/66 (92) 94 09/25/17 20:13 98.0 71 17 129/62 (84) 94 09/25/17 16:05 97.5 74 20 142/64 (90) 100 I/O 09/25/17 09/25/17 09/25/17 09/26/17 09/26/17 09/26/17 07:00 15:00 23:00 07:00 15:00 23:00 Intake Total 880 ml 845 ml 240 ml Balance 880 ml 845 ml 240 ml Intake Oral 240 ml IV Total 50 ml 845 ml Packed Cells 800 ml Blood Product IV Normal Saline Flush 30 ml # Voids 4 Result Diagram: 09/26/1752409/26/17524 Imaging Last Impressions Thoracic Spine CT 09/25/17427 Signed Impressions: Service Date/Time: Monday, September 25, 2017 05:16 - CONCLUSION: 1. No evidence of compression deformity or spondylolisthesis. Radhames Santana MD Lumbar Spine CT 09/25/17427 Signed Impressions: Service Date/Time: Monday, September 25, 2017 05:16 - CONCLUSION: 1. Advanced degenerative changes throughout the lumbar spine with associated moderately severe left scoliosis and with spinal stenosis due to bony hypertrophy at the L3-4 and L4-5 levels. 2. No evidence of acute bony injury. Radhames Santana MD Head CT 09/25/178 Signed Impressions: Service Date/Time: Monday, September 25, 2017 04:47 - CONCLUSION: 1. No acute findings in the brain. 2. Right parietal scalp injury with some gas, but no radiopaque foreign bodies. No skull fracture seen. Radhames Snatana MD Chest CT 09/25/17427 Signed Impressions: Service Date/Time: Monday, September 25, 2017 05:16 - CONCLUSION: No acute findings in the chest. No evidence of pleural effusion or pneumothorax. Radhames Santana MD Cervical Spine CT 09/25/17427 Signed Impressions: Service Date/Time: Monday, September 25, 2017 04:47 - CONCLUSION: No evidence of compression deformity or spondylolisthesis. Advanced discogenic degenerative changes C3-7. Radhames Santana MD Abdomen/Pelvis CT 09/25/17427 Signed Impressions: Service Date/Time: Monday, September 25, 2017 05:16 - CONCLUSION: 1. No acute findings; the solid organs of the abdomen/pelvis are intact. 2. 5 cm fluid density structure adjacent to the urinary bladder superiorly and to the left, possibly representing a bladder diverticulum. Radhames Santana MD Objective Remarks General - Lying flat in bed and responsive to questions HEENT - Laceration right scalp with intact sutures RESP - CTA CV - RRR without murmur rub or gallop Abd - Soft and nontender Extremities - FROM without deformity Medications and IVs Current Medications Medications (Trade) Dose Ordered Sig/Lisset Route Start Time Stop Time Status Last Admin (NS Flush) 2 ml UNSCH PRN IVF 09/25/17 04:30 Sodium Chloride 1,000 ml @ 100 mls/hr Q10H IV 09/25/17 07:54 09/26/17 05:00 (Tylenol) 650 mg Q4H PRN PO 09/25/17 09:00 (Zofran Inj) 4 mg Q6H PRN IVP 09/25/17 09:00 (Narcan Inj) 0.4 mg UNSCH PRN IV PUSH 09/25/17 08:00 (Marylin-Colace) 1 tab BID PO 09/25/17 09:00 09/26/17 08:52 (Milk Of Magnesia Liq) 30 ml Q12H PRN PO 09/25/17 09:00 (Senokot) 17.2 mg Q12H PRN PO 09/25/17 09:00 (Dulcolax Supp) 10 mg DAILY PRN RECTAL 09/25/17 09:00 (Lactulose Liq) 30 ml DAILY PRN PO 09/25/17 09:00 (Xanax) 0.25 mg Q8H PRN PO 09/25/17 09:00 09/26/17 08:52 (CeleXA) 10 mg DAILY PO 09/25/17 09:00 09/26/17 08:52 (Toprol Xl) 25 mg DAILY PO 09/25/17 09:00 09/26/17 08:52 (Pill Splitter) 1 ea UNSCH PRN OTHER 09/25/17 08:15 Assessment and Plan Problem List: (1) Scalp laceration ICD Codes: S01.01XA - Laceration without foreign body of scalp, initial encounter Status: Acute Plan: Monitor neuro checks and hold Coumadin for now. Hg down to 9.3 from 11. Will (2) Acute hemorrhage ICD Codes: R58 - Hemorrhage, not elsewhere classified Status: Acute Plan: Monitor HG closely. Hg 9.3. and INR down to 3. Will hold one more day on starting warfarin pending Neuro consult (3) Dementia ICD Codes: F03.90 - Dementia Status: Acute Plan: Cont home meds and monitor. F/U Neuro consult (4) Coumadin toxicity ICD Codes: T45.511A - Poisoning by anticoagulants, accidental (unintentional), initial encounter Plan: Hold Coumadin until INR 3 or less. INR down to 3 but will hold one more day to resume warfarin until Neuro consult done. F/U labs in the AM. Assessment and Plan S/P fall with hemorrhage from laceration now sutured. Head CT R/O SDH. Monitoring closely. Coumadin on hold since INR is elevated. F/U in the AM. Discharge Planning Home when stable Problem Qualifiers (1) Scalp laceration: Qualified Codes: S01.01XA - Laceration without foreign body of scalp, initial encounter (2) Dementia: Qualified Codes: G30.1 - Alzheimer's disease with late onset; F02.80 - Dementia in other diseases classified elsewhere without behavioral disturbance (3) Coumadin toxicity: Qualified Codes: T45.511A - Poisoning by anticoagulants, accidental ( unintentional), initial encounter Gabriel Gardner Sep 26, 2017 14:00
--- NOTE | 2017-09-26 16:48 | MB ---
cc: Graciela Ortega MD DATE OF CONSULT: REASON FOR CONSULTATION: Dementia, possible worsening dementia, head injury, fall. HISTORY OF PRESENT ILLNESS: The patient is an 86-year-old woman who was found down and brought to the ED with scalp laceration. She had a CT of the head that did not show a subdural. She was treated and sutured and monitoring her H and H afterwards. She has a significant history of dementia, valve replacement, on Coumadin. HOME MEDICATIONS: Metoprolol, citalopram, acetaminophen, Xanax, and warfarin. ALLERGIES: NONE REPORTED. SOCIAL HISTORY: She states she lives with her . No tobacco, alcohol, or substance abuse. SURGICAL HISTORY: Colectomy partial, loop recorder, heart valve, cataracts. PHYSICAL EXAMINATION: VITALS: Her temperature is 98.4, pulse 69, respiratory rate 18, blood pressure 138/64. NECK: Supple. I do not appreciate any carotid bruits. HEART: Regular. NEUROLOGIC: She is awake and alert. She knows she is in [facility]. She knows her date of . She does not know the month, she thinks it is August. She is not sure of the year. She cannot tell me the day of the week, she states she does not pay attention to that. Speech is normal. Pupils reactive. Face is symmetrical. Motor-fernández, I do not see any weakness. Cerebellar is normal. Toes withdraw. Reflexes are 1+. Gait, I am going to withhold at this time. LABORATORY STUDIES: Reviewed. Her platelets have dropped from 195,000 to 123,000. Coagulation panel: Her INR yesterday was 3.6; today, it is 3.0. Chemistries: Creatinine 1.05 with a GFR of 49, AST 38, ALT 19, albumin 3.2. She did have a CT of the head that shows nothing acute, right parietal scalp injury but no foreign bodies. Cervical spine: No fracture or deformity. IMPRESSION: History of dementia in an 86-year-old woman, etiology of her fall is unknown. She was a bit elevated on her INR. I would hold her Coumadin until her INR is below 3, watch her hemoglobin and hematocrit. I will go ahead and get an electroencephalogram. Not sure if she has been on any medicines for her dementia, but that is something we can certainly address once she is discharged in the office. Check a B12, a TSH, a T4 on her and if her electroencephalogram and labs are normal and no issues with gait with physical therapy, from my perspective she can be discharged home. Gladly see her in the office to discuss other options, such as Aricept and/or Namenda for dementia if she has never been on those 2 medications. Thank you for allowing me to participate in her care. Graciela Ortega MD DF/TI , 04:30 PM , 04:47 PM
[2017-09-27 00:40] VITALS: BP 169/94; PULSE 57; RESP 17; TEMP 98; O2SAT 98
[2017-09-27 05:10] VITALS: BP 163/77; PULSE 58; RESP 17; TEMP 97.6; O2SAT 98
[2017-09-27 08:00] VITALS: BP 188/86; PULSE 72; RESP 18; TEMP 97.5; O2SAT 97
[2017-09-27] MEDS: METOPROLOL SUCCINATE 25 MG EXTENDED RELEASE TAB PO SCH (08:53)
[2017-09-27] MEDS: CITALOPRAM HYDROBROMIDE 20 MG TAB PO SCH (08:53)
[2017-09-27] MEDS: ALPRAZolam 0.25 MG TAB PO PRN (08:53)
[2017-09-27] MEDS: DOCUSATE SODIUM 50 MG/SENNA 8.6 MG TAB PO SCH ×2 (08:53→22:04)
[2017-09-27] MEDS: SODIUM CHLORIDE 0.9% FLUSH 10 ML FLUSH IVF PRN (08:53)
[2017-09-27] MEDS: SODIUM CHLOR 0.9% 1000 ML INJ 1,000 ML IV SCH ×2 (08:54→22:01)
[2017-09-27 09:36] LABS: AUTOMATED NEUTROPHIL # 6.4 TH/MM3 (1.8-7.7); BASOPHIL % 0.6 % (0.0-2.0); EOSINOPHIL # 0.3 TH/MM3 (0-0.4); EOSINOPHIL % 3.8 % (0.0-4.0); HEMATOCRIT 37.7 % (35.0-46.0); HEMOGLOBIN 13.2 GM/DL (11.6-15.3); LYMPH % 9.4 % (9.0-44.0); LYMPHOCYTE # 0.8 TH/MM3 (1.0-4.8); MEAN CELL VOLUME 91.6 FL (80.0-100.0); MEAN CORPUSCULAR HEMOGLOBIN 32.1 PG (27.0-34.0); MEAN CORPUSCULAR HGB CONC 35.1 % (32.0-36.0); MEAN PLATELET VOLUME 8.4 FL (7.0-11.0); MONO % 8.6 % (0.0-8.0); MONOCYTE # 0.7 TH/MM3 (0-0.9); NEUT % 77.6 % (16.0-70.0); PLATELET COUNT 142 TH/MM3 (150-450); RED BLOOD COUNT 4.11 MIL/MM3 (4.00-5.30); RED CELL DISTRIBUTION WIDTH 14.4 % (11.6-17.2); WHITE BLOOD COUNT 8.3 TH/MM3 (4.0-11.0)
[2017-09-27 09:48] LABS: PROTHROMBIN TIME - PATIENT 16.9 SEC (9.8-11.6)
[2017-09-27 09:53] LABS: INTERNATIONAL NORMALIZED RATIO 1.7 RATIO
[2017-09-27 10:16] LABS: ALBUMIN 3.1 GM/DL (3.4-5.0); AST (GOT) 39 U/L (15-37); BICARBONATE 27.5 MEQ/L (21.0-32.0); BLOOD UREA NITROGEN 17 MG/DL (7-18); CALCIUM 8.5 MG/DL (8.5-10.1); CHLORIDE 109 MEQ/L (98-107); CREATININE 1.01 MG/DL (0.50-1.00); GLOMERULAR FILTRATION RATE 52 ML/MIN (>89); GLUCOSE,RANDOM 84 MG/DL (74-106); SODIUM (NA) 142 MEQ/L (136-145)
--- NOTE | 2017-09-27 10:22 | HHI.PR ---
Subjective Remarks Found in bed, alert, pleasantly confused Objective Vital Signs Date Time Temp Pulse Resp B/P (MAP) Pulse Ox O2 Delivery O2 Flow Rate FiO2 09/27/17 08:00 97.5 72 18 188/86 (120) 97 09/27/17 05:10 97.6 58 17 163/77 (105) 98 09/27/17 00:40 98.0 57 17 169/94 (119) 98 09/26/17 21:00 97.8 60 17 117/72 (87) 95 09/26/17 16:33 97.2 59 18 149/74 (99) 97 09/26/17 12:40 98.4 69 18 138/64 (88) 98 I/O 09/26/17 09/26/17 09/26/17 09/27/17 09/27/17 09/27/17 07:00 15:00 23:00 07:00 15:00 23:00 Intake Total 1240 ml 660 ml 1000 ml 240 ml Balance 1240 ml 660 ml 1000 ml 240 ml Intake Oral 240 ml 660 ml 240 ml IV Total 1000 ml 1000 ml # Voids 4 4 3 # Bowel Movements 1 Result Diagram: 09/27/17 0842 09/26/17 0525 Other Results GENERAL: This is a well-nourished, well-developed patient, in no apparent distress. SKIN: Sutured laceration right scalp HEAD: Traumatic with intact sutures. Normocephalic. Hair matted to right EYES: Pupils equal round and reactive. Extraocular motions intact. No scleral icterus. No injection or drainage. ENT: Nose without bleeding, purulent drainage NECK: Trachea midline. No JVD CARDIOVASCULAR: Regular rate and rhythm with 2/6 systolic click. RESPIRATORY: Clear to auscultation. Breath sounds equal bilaterally. No wheezes , rales, or rhonchi. GASTROINTESTINAL: Abdomen soft, non-tender, nondistended. No hepato-splenomegaly , or palpable masses. No guarding. MUSCULOSKELETAL: Extremities without clubbing, cyanosis, or edema. Neuro- Awake and alert, Medications and IVs Current Medications Medications (Trade) Dose Ordered Sig/Lisset Route Start Time Stop Time Status Last Admin (NS Flush) 2 ml UNSCH PRN IVF 09/25/17 04:30 09/27/17 08:53 Sodium Chloride 1,000 ml @ 100 mls/hr Q10H IV 09/25/17 07:54 09/27/17 08:54 (Tylenol) 650 mg Q4H PRN PO 09/25/17 09:00 (Zofran Inj) 4 mg Q6H PRN IVP 09/25/17 09:00 (Narcan Inj) 0.4 mg UNSCH PRN IV PUSH 09/25/17 08:00 (Marylin-Colace) 1 tab BID PO 09/25/17 09:00 09/27/17 08:53 (Milk Of Magnesia Liq) 30 ml Q12H PRN PO 09/25/17 09:00 (Senokot) 17.2 mg Q12H PRN PO 09/25/17 09:00 (Dulcolax Supp) 10 mg DAILY PRN RECTAL 09/25/17 09:00 (Lactulose Liq) 30 ml DAILY PRN PO 09/25/17 09:00 (Xanax) 0.25 mg Q8H PRN PO 09/25/17 09:00 09/27/17 08:53 (CeleXA) 10 mg DAILY PO 09/25/17 09:00 09/27/17 08:53 (Toprol Xl) 25 mg DAILY PO 09/25/17 09:00 09/27/17 08:53 (Pill Splitter) 1 ea UNSCH PRN OTHER 09/25/17 08:15 Assessment and Plan Problem List: (1) Scalp laceration ICD Codes: S01.01XA - Laceration without foreign body of scalp, initial encounter Status: Acute Plan: Sutures intact to Right side of head (2) H/O aortic valve replacement ICD Codes: Z95.2 - Presence of prosthetic heart valve Plan: INR today 1.7, will restart Coumadin, Monitor INR. (3) Dementia ICD Codes: F03.90 - Dementia Status: Acute Plan: Seen by Neurology, will follow up as outpatient Discharge Planning Consult CM for SNF placement Problem Qualifiers (1) Scalp laceration: Qualified Codes: S01.01XA - Laceration without foreign body of scalp, initial encounter (2) Dementia: Qualified Codes: G30.1 - Alzheimer's disease with late onset; F02.80 - Dementia in other diseases classified elsewhere without behavioral disturbance Kassie Mccabe Sep 27, 2017 10:22
[2017-09-27 10:44] LABS: ALKALINE PHOSPHATASE 41 U/L (45-117); ALT (GPT) 19 U/L (10-53); FREE T4 0.97 NG/DL (0.76-1.46); TOTAL BILIRUBIN ADULT 3.3 MG/DL (0.2-1.0); TOTAL PROTEIN 6.1 GM/DL (6.4-8.2)
[2017-09-27 12:00] VITALS: BP 141/65; PULSE 59; RESP 18; TEMP 97.8; O2SAT 98
[2017-09-27 14:29] LABS: INTERNATIONAL NORMALIZED RATIO 1.5 RATIO; PROTHROMBIN TIME - PATIENT 15.1 SEC (9.8-11.6)
[2017-09-27 16:00] VITALS: BP 169/76; PULSE 65; RESP 18; TEMP 97.5; O2SAT 97
[2017-09-27] MEDS: WARFARIN SOD 2 MG TAB PO SCH (16:05)
[2017-09-27 20:00] VITALS: BP 162/70; PULSE 58; RESP 20; TEMP 97.5; O2SAT 98
[2017-09-28] VITALS (7 sets, daily range): BP systolic 142–196; BP diastolic 73–88; PULSE 57–120; RESP 18–20; TEMP 97–99.1; O2SAT 96–100
[2017-09-28 07:08] LABS: AUTOMATED NEUTROPHIL # 3.9 TH/MM3 (1.8-7.7); BASOPHIL # 0.1 TH/MM3 (0-0.2); BASOPHIL % 1.3 % (0.0-2.0); EOSINOPHIL # 0.3 TH/MM3 (0-0.4); EOSINOPHIL % 5.4 % (0.0-4.0); HEMATOCRIT 27.7 % (35.0-46.0); HEMOGLOBIN 9.7 GM/DL (11.6-15.3); LYMPH % 11.6 % (9.0-44.0); LYMPHOCYTE # 0.6 TH/MM3 (1.0-4.8); MEAN CELL VOLUME 92.6 FL (80.0-100.0); MEAN CORPUSCULAR HEMOGLOBIN 32.3 PG (27.0-34.0); MEAN CORPUSCULAR HGB CONC 34.9 % (32.0-36.0); MEAN PLATELET VOLUME 7.6 FL (7.0-11.0); MONO % 9.5 % (0.0-8.0); MONOCYTE # 0.5 TH/MM3 (0-0.9); NEUT % 72.2 % (16.0-70.0); PLATELET COUNT 115 TH/MM3 (150-450); RED CELL DISTRIBUTION WIDTH 14.5 % (11.6-17.2); WHITE BLOOD COUNT 5.5 TH/MM3 (4.0-11.0)
[2017-09-28 07:19] LABS: INTERNATIONAL NORMALIZED RATIO 1.5 RATIO; PROTHROMBIN TIME - PATIENT 15.4 SEC (9.8-11.6)
[2017-09-28 07:55] LABS: BICARBONATE 22.8 MEQ/L (21.0-32.0); CALCIUM 5.9 MG/DL (8.5-10.1); CREATININE 0.69 MG/DL (0.50-1.00)
[2017-09-28 08:31] LABS: TOTAL PROTEIN 4.3 GM/DL (6.4-8.2)
[2017-09-28 08:37] LABS: CALCIUM-PROTEIN CORRECTED 7.2 MG/DL (8.5-10.1)
--- NOTE | 2017-09-28 08:37 | MG ---
cc: Low Vidal MD # [id number] SUBJECTIVE: This is an 86-year-old woman, dizziness, hypercholesterolemia. MEDICATIONS: Celexa, Toprol, Xanax. DESCRIPTION: On recording there is a low amplitude beta rhythm. Occasional diffuse low amplitude 7 hertz rhythms are noted. No hemisphere asymmetries are seen. No epileptiform or seizure activity is noted. Photic stimulation is performed, without significant posterior driving. IMPRESSION: Normal awake EEG. No evidence for a focal or diffuse abnormality. MD DARYA Mancilla/NURYS , 07:59 PM , 09:40 PM
--- NOTE | 2017-09-28 09:10 | HHI.PR ---
Subjective Remarks Noted to be more confused today. Objective Vital Signs Date Time Temp Pulse Resp B/P (MAP) Pulse Ox O2 Delivery O2 Flow Rate FiO2 09/28/17 08:00 98.2 71 18 195/86 (122) 96 09/28/17 04:00 97.5 120 20 175/82 (113) 98 09/28/17 00:00 97.0 61 18 142/80 (100) 99 09/27/17 20:00 97.5 58 20 162/70 (100) 98 09/27/17 16:00 97.5 65 18 169/76 (107) 97 09/27/17 12:00 97.8 59 18 141/65 (90) 98 I/O 09/27/17 09/27/17 09/27/17 09/28/17 09/28/17 09/28/17 07:00 15:00 23:00 07:00 15:00 23:00 Intake Total 240 ml Balance 240 ml Intake Oral 240 ml # Voids 3 4 # Bowel Movements 1 1 Result Diagram: 09/28/17 0650 09/28/17 0650 Objective Remarks GENERAL: This is a well-nourished, well-developed patient, in no apparent distress. SKIN: Sutured laceration right scalp HEAD: Traumatic with intact sutures. Normocephalic EYES: Pupils equal round and reactive. Extraocular motions intact. No scleral icterus. No injection or drainage. ENT: Nose without bleeding, purulent drainage NECK: Trachea midline. No JVD CARDIOVASCULAR: Regular rate and rhythm with 2/6 systolic click. RESPIRATORY: Clear to auscultation. Breath sounds equal bilaterally. No wheezes , rales, or rhonchi. GASTROINTESTINAL: Abdomen soft, non-tender, nondistended. No hepato-splenomegaly , or palpable masses. No guarding. MUSCULOSKELETAL: Extremities without clubbing, cyanosis, or edema. Neuro- Awake and alert Medications and IVs Current Medications Medications (Trade) Dose Ordered Sig/Lisset Route Start Time Stop Time Status Last Admin (NS Flush) 2 ml UNSCH PRN IVF 09/25/17 04:30 09/28/17 09:45 Sodium Chloride 1,000 ml @ 100 mls/hr Q10H IV 09/25/17 07:54 09/28/17 09:45 (Tylenol) 650 mg Q4H PRN PO 09/25/17 09:00 09/27/17 16:06 (Zofran Inj) 4 mg Q6H PRN IVP 09/25/17 09:00 (Narcan Inj) 0.4 mg UNSCH PRN IV PUSH 09/25/17 08:00 (Marylin-Colace) 1 tab BID PO 09/25/17 09:00 09/28/17 09:45 (Milk Of Magnesia Liq) 30 ml Q12H PRN PO 09/25/17 09:00 (Senokot) 17.2 mg Q12H PRN PO 09/25/17 09:00 (Dulcolax Supp) 10 mg DAILY PRN RECTAL 09/25/17 09:00 (Lactulose Liq) 30 ml DAILY PRN PO 09/25/17 09:00 (Xanax) 0.25 mg Q8H PRN PO 09/25/17 09:00 09/28/17 09:45 (CeleXA) 10 mg DAILY PO 09/25/17 09:00 09/28/17 09:45 (Toprol Xl) 25 mg DAILY PO 09/25/17 09:00 09/28/17 09:45 (Pill Splitter) 1 ea UNSCH PRN OTHER 09/25/17 08:15 (Coumadin) 2 mg DAILY@16 PO 09/27/17 16:00 09/27/17 16:05 Potassium Chloride 100 ml @ 50 mls/hr Q2H IV 09/28/17 09:30 09/28/17 13:29 Calcium Gluconate 1 gm/Sodium Chloride 100 ml @ 100 mls/hr ONCE ONCE IV 09/28/17 11:00 09/28/17 11:59 (Oscal) 500 mg Q12HR PO 09/28/17 21:00 (KCl) 10 meq BID PO 09/28/17 21:00 Assessment and Plan Problem List: (1) Scalp laceration ICD Codes: S01.01XA - Laceration without foreign body of scalp, initial encounter Status: Acute Plan: Sutures intact to Right side of head (2) Hypocalcemia ICD Codes: E83.51 - Hypocalcemia Plan: Replace calcium recheck in am (3) Hypokalemia ICD Codes: E87.6 - Hypokalemia Plan: Replace potassium recheck in am. (4) H/O aortic valve replacement ICD Codes: Z95.2 - Presence of prosthetic heart valve Plan: Coumadin restarted, cont to monitor. (5) Dementia ICD Codes: F03.90 - Dementia Status: Acute Plan: History of dementia, seen by neurology, will f/u outpatient Discharge Planning DC to snf once electrolytes stable Problem Qualifiers (1) Scalp laceration: Qualified Codes: S01.01XA - Laceration without foreign body of scalp, initial encounter (2) Dementia: Qualified Codes: G30.1 - Alzheimer's disease with late onset; F02.80 - Dementia in other diseases classified elsewhere without behavioral disturbance Kassie Mccabe Sep 28, 2017 09:10
[2017-09-28] MEDS: SODIUM CHLOR 0.9% 1000 ML INJ 1,000 ML IV SCH ×2 (09:45→15:54)
[2017-09-28] MEDS: CITALOPRAM HYDROBROMIDE 20 MG TAB PO SCH (09:45)
[2017-09-28] MEDS: METOPROLOL SUCCINATE 25 MG EXTENDED RELEASE TAB PO SCH (09:45)
[2017-09-28] MEDS: DOCUSATE SODIUM 50 MG/SENNA 8.6 MG TAB PO SCH ×2 (09:45→21:00)
[2017-09-28] MEDS: SODIUM CHLORIDE 0.9% FLUSH 10 ML FLUSH IVF PRN (09:45)
[2017-09-28] MEDS: ALPRAZolam 0.25 MG TAB PO PRN ×2 (09:45→19:45)
[2017-09-28] MEDS: POTASSIUM CHLOR 20 MEQ PREMIX 100 ML IV SCH ×2 (10:38→18:06)
[2017-09-28] MEDS ORDERED: CALCIUM GLUCONATE INJ 1 GM in SODIUM CHLORIDE 0.9% INJ 90 ML IV ONE (11:00)
[2017-09-28] MEDS: WARFARIN SOD 2 MG TAB PO SCH (16:30)
[2017-09-28] MEDS: CALCIUM CARBONATE 1.25 GM (CA 500 MG) TAB PO SCH (19:45)
[2017-09-28] MEDS: POTASSIUM CHLORIDE 10 MEQ CAP PO SCH (21:29)
--- NOTE | 2017-09-28 23:49 | RADRPT ---
EXAM DATE/TIME: 09/28/2017 23:27 [facility] COMPARISON: CT BRAIN W/O CONTRAST, September 25, 2017, 4:47. INDICATIONS : Altered mental status. RADIATION DOSE: 56.35 CTDIvol (mGy) MEDICAL HISTORY : Hypertension. Carcinoma, colon. SURGICAL HISTORY : None. ENCOUNTER: Initial ACUITY: 1 day PAIN SCALE: 0/10 LOCATION: cranial TECHNIQUE: Multiple contiguous axial images were obtained of the head. Using automated exposure control and adj ustment of the mA and/or kV according to patient size, radiation dose was kept as low as reasonably a chievable to obtain optimal diagnostic quality images. DICOM format image data is available electro nically for review and comparison. FINDINGS: CEREBRUM: There is generalized atrophy. Ventricles are normal in size. There is mild periventricular white caryl er low attenuation. Encephalomalacia is present in the left occipital lobe in a periventricular regio n. No evidence of midline shift, mass lesion, hemorrhage or acute infarction. No extra-axial fluid collections are seen. POSTERIOR FOSSA: The cerebellum and brainstem demonstrate no acute finding. There is likely stable encephalomalacia in the right cerebellum. The 4th ventricle is midline. The cerebellopontine angle is unremarkable. EXTRACRANIAL: Visualized sinuses are clear. The right scalp soft tissue swelling has decreased. SKULL: The calvaria is intact. No evidence of skull fracture. CONCLUSION: 1. No acute intracranial abnormality is identified. 2. Chronic changes include generalized atrophy and chronic periventricular white matter changes cee cteristic of chronic microvascular ischemia. There is stable encephalomalacia in the left occipital l obe and right cerebellum. 3. Decreased right scalp swelling. Collin Chavez MD on September 28, 2017 at 23:43 Board Certified Radiologist. This report was verified electronically.
[2017-09-28] MEDS: amLODIPine BESYLATE 5 MG TAB PO SCH (23:59)
[2017-09-29] VITALS (9 sets, daily range): BP systolic 135–193; BP diastolic 60–89; PULSE 52–84; RESP 17–20; TEMP 97.4–98.6; O2SAT 94–99
[2017-09-29] MEDS: SODIUM CHLOR 0.9% 1000 ML INJ 1,000 ML IV SCH ×3 (01:54→21:06)
[2017-09-29] MEDS: ALPRAZolam 0.25 MG TAB PO PRN (04:36)
[2017-09-29 06:39] LABS: AUTOMATED NEUTROPHIL # 6.5 TH/MM3 (1.8-7.7); BASOPHIL % 0.4 % (0.0-2.0); EOSINOPHIL # 0.4 TH/MM3 (0-0.4); EOSINOPHIL % 4.6 % (0.0-4.0); HEMOGLOBIN 12.6 GM/DL (11.6-15.3); LYMPH % 7.9 % (9.0-44.0); LYMPHOCYTE # 0.7 TH/MM3 (1.0-4.8); MEAN CELL VOLUME 91.7 FL (80.0-100.0); MEAN CORPUSCULAR HEMOGLOBIN 32.1 PG (27.0-34.0); MEAN PLATELET VOLUME 7.5 FL (7.0-11.0); MONO % 7.9 % (0.0-8.0); MONOCYTE # 0.7 TH/MM3 (0-0.9); NEUT % 79.2 % (16.0-70.0); PLATELET COUNT 183 TH/MM3 (150-450); RED BLOOD COUNT 3.93 MIL/MM3 (4.00-5.30); RED CELL DISTRIBUTION WIDTH 14.3 % (11.6-17.2); WHITE BLOOD COUNT 8.2 TH/MM3 (4.0-11.0)
[2017-09-29 06:53] LABS: INTERNATIONAL NORMALIZED RATIO 1.2 RATIO; PROTHROMBIN TIME - PATIENT 11.8 SEC (9.8-11.6)
--- NOTE | 2017-09-29 06:56 | HHI.PR ---
Subjective Remarks Very confused this am,in restraints nurse reports not sleeping all night Objective Vital Signs Date Time Temp Pulse Resp B/P (MAP) Pulse Ox O2 Delivery O2 Flow Rate FiO2 09/29/17 06:03 97.7 75 20 150/69 (96) 94 09/29/17 01:44 97.4 84 20 193/89 (123) 94 09/28/17 21:59 97.4 76 20 196/88 (124) 96 09/28/17 16:26 98.0 64 18 170/73 (105) 100 09/28/17 12:38 99.1 57 18 170/74 (106) 98 09/28/17 12:00 59 09/28/17 08:00 98.2 71 18 195/86 (122) 96 I/O 09/28/17 09/28/17 09/28/17 09/29/17 09/29/17 09/29/17 07:00 15:00 23:00 07:00 15:00 23:00 # Voids 4 10 7 # Bowel Movements 1 3 1 Result Diagram: 09/29/17 0606 09/28/17 0650 Imaging Last [address] 09/28/17 0000 Signed Impressions: Service Date/Time: Thursday, September 28, 2017 23:27 - CONCLUSION: 1. No acute intracranial abnormality is identified. 2. Chronic changes include generalized atrophy and chronic periventricular white matter changes characteristic of chronic microvascular ischemia. There is stable encephalomalacia in the left occipital lobe and right cerebellum. 3. Decreased right scalp swelling. Collin Chavez MD Objective Remarks GENERAL: This is a well-nourished, well-developed patient, in wrist restraints SKIN: Sutured laceration right scalp HEAD: Traumatic with intact sutures. Normocephalic EYES: Pupils equal round and reactive. Extraocular motions intact. No scleral icterus. No injection or drainage. ENT: Nose without bleeding, purulent drainage NECK: Trachea midline. No JVD CARDIOVASCULAR: Regular rate with 2/6 systolic click. RESPIRATORY: Clear to auscultation. Breath sounds equal bilaterally. No wheezes , rales, or rhonchi. GASTROINTESTINAL: Abdomen soft, non-tender, nondistended. No hepato-splenomegaly , or palpable masses. No guarding. MUSCULOSKELETAL: Extremities without clubbing, cyanosis, or edema. Neuro- Awake and alert x self Medications and IVs Current Medications Medications (Trade) Dose Ordered Sig/Lisset Route Start Time Stop Time Status Last Admin (NS Flush) 2 ml UNSCH PRN IVF 09/25/17 04:30 09/28/17 09:45 Sodium Chloride 1,000 ml @ 100 mls/hr Q10H IV 09/25/17 07:54 09/28/17 09:45 (Tylenol) 650 mg Q4H PRN PO 09/25/17 09:00 09/27/17 16:06 (Zofran Inj) 4 mg Q6H PRN IVP 09/25/17 09:00 (Narcan Inj) 0.4 mg UNSCH PRN IV PUSH 09/25/17 08:00 (Marylin-Colace) 1 tab BID PO 09/25/17 09:00 09/28/17 09:45 (Milk Of Magnesia Liq) 30 ml Q12H PRN PO 09/25/17 09:00 (Senokot) 17.2 mg Q12H PRN PO 09/25/17 09:00 (Dulcolax Supp) 10 mg DAILY PRN RECTAL 09/25/17 09:00 (Lactulose Liq) 30 ml DAILY PRN PO 09/25/17 09:00 (Xanax) 0.25 mg Q8H PRN PO 09/25/17 09:00 09/29/17 04:36 (CeleXA) 10 mg DAILY PO 09/25/17 09:00 09/28/17 09:45 (Toprol Xl) 25 mg DAILY PO 09/25/17 09:00 09/28/17 09:45 (Pill Splitter) 1 ea UNSCH PRN OTHER 09/25/17 08:15 (Coumadin) 2 mg DAILY@16 PO 09/27/17 16:00 09/28/17 16:30 (Oscal) 500 mg Q12HR PO 09/28/17 21:00 09/28/17 19:45 (KCl) 10 meq BID PO 09/28/17 21:00 09/28/17 21:29 (Norvasc) 5 mg BID PO 09/28/17 21:00 09/28/17 23:59 Assessment and Plan Problem List: (1) Scalp laceration ICD Codes: S01.01XA - Laceration without foreign body of scalp, initial encounter Status: Acute Plan: Sutures intact to Right side of head (2) Hypocalcemia ICD Codes: E83.51 - Hypocalcemia Plan: Replaced, pending today results (3) Hypokalemia ICD Codes: E87.6 - Hypokalemia Plan: Replaced, on supplement results pending this am (4) H/O aortic valve replacement ICD Codes: Z95.2 - Presence of prosthetic heart valve Plan: Coumadin restarted, cont to monitor. (5) Dementia ICD Codes: F03.90 - Dementia Status: Acute Plan: History of dementia, seen by neurology, will f/u outpatient increasingly confused, CT negative for any acute changes (6) Urinary frequency ICD Codes: R35.0 - Frequency of micturition Plan: Nurse voices up multiple times to urinate w/ little amounts. UA ordered/ Problem Qualifiers (1) Scalp laceration: Qualified Codes: S01.01XA - Laceration without foreign body of scalp, initial encounter (2) Dementia: Qualified Codes: G30.1 - Alzheimer's disease with late onset; F02.80 - Dementia in other diseases classified elsewhere without behavioral disturbance Kassie Mccabe Sep 29, 2017 06:56
[2017-09-29 07:08] LABS: BICARBONATE 28.8 MEQ/L (21.0-32.0); CALCIUM 9.3 MG/DL (8.5-10.1); CREATININE 1.03 MG/DL (0.50-1.00)
[2017-09-29] MEDS: CITALOPRAM HYDROBROMIDE 20 MG TAB PO SCH (08:40)
[2017-09-29] MEDS: amLODIPine BESYLATE 5 MG TAB PO SCH ×2 (08:40→21:05)
[2017-09-29] MEDS: CALCIUM CARBONATE 1.25 GM (CA 500 MG) TAB PO SCH ×2 (08:41→21:05)
[2017-09-29] MEDS: METOPROLOL SUCCINATE 25 MG EXTENDED RELEASE TAB PO SCH (08:41)
[2017-09-29] MEDS: DOCUSATE SODIUM 50 MG/SENNA 8.6 MG TAB PO SCH ×2 (08:42→21:00)
[2017-09-29] MEDS: POTASSIUM CHLORIDE 10 MEQ CAP PO SCH ×2 (08:42→21:06)
[2017-09-29 10:15] LABS: BILIRUBIN, URINE NEG (NEG); BLOOD, URINE NEG (NEG); GLUCOSE,URINE NEG (NEG); KETONE, URINE NEG (NEG); MUCUS URINE FEW /lpf (OCC); NITRITE,URINE NEG (NEG); SQUAMOUS EPITHELIAL CELL URINE 1 /hpf (0-5); URINE COLOR LIGHT-YELLOW (YELLW/STRAW); URINE LEUKOCYTE ESTERASE NEG (NEG)
[2017-09-29] MEDS: WARFARIN SOD 2 MG TAB PO SCH (15:41)
[2017-09-29] MEDS: risperiDONE 0.25 MG TAB PO SCH (21:05)
[2017-09-30] VITALS: BP 163/77; PULSE 68; RESP 19; TEMP 97.4; O2SAT 99
[2017-09-30 04:00] VITALS: BP 157/69; PULSE 61; RESP 18; TEMP 96.4; O2SAT 98
[2017-09-30] MEDS: SODIUM CHLOR 0.9% 1000 ML INJ 1,000 ML IV SCH (05:41)
[2017-09-30] MEDS: METOPROLOL SUCCINATE 25 MG EXTENDED RELEASE TAB PO SCH (08:31)
[2017-09-30] MEDS: DOCUSATE SODIUM 50 MG/SENNA 8.6 MG TAB PO SCH (08:31)
[2017-09-30] MEDS: CITALOPRAM HYDROBROMIDE 20 MG TAB PO SCH (08:31)
[2017-09-30] MEDS: risperiDONE 0.25 MG TAB PO SCH (08:31)
[2017-09-30] MEDS: amLODIPine BESYLATE 5 MG TAB PO SCH (08:31)
[2017-09-30] MEDS: CALCIUM CARBONATE 1.25 GM (CA 500 MG) TAB PO SCH (08:31)
[2017-09-30] MEDS: POTASSIUM CHLORIDE 10 MEQ CAP PO SCH (08:32)
[2017-09-30 08:35] VITALS: BP 126/68; PULSE 67; RESP 18; TEMP 97.5; O2SAT 100
[2017-09-30 08:39] VITALS: PULSE 65
[2017-09-30] MEDS ORDERED: RISP.25 PO (08:55)
--- NOTE | 2017-09-30 09:01 | HHI.DS ---
Discharge Summary Admission Date Sep 25, 2017 at 07:22 Admitting Diagnosis Head injury, scalp laceration with hemorrhage, fall CBC/BMP: 09/29/17 0606 09/29/17 0606 Significant Findings Laboratory Tests Test 09/27/17 13:35 09/28/17 06:50 09/29/17 06:06 09/29/17 09:40 Prothrombin Time 15.1 SEC (9.8-11.6) 15.4 SEC (9.8-11.6) 11.8 SEC (9.8-11.6) Red Blood Count 3.00 MIL/MM3 (4.00-5.30) 3.93 MIL/MM3 (4.00-5.30) Hemoglobin 9.7 GM/DL (11.6-15.3) Hematocrit 27.7 % (35.0-46.0) Platelet Count 115 TH/MM3 (150-450) Neutrophils (%) (Auto) 72.2 % (16.0-70.0) 79.2 % (16.0-70.0) Monocytes (%) (Auto) 9.5 % (0.0-8.0) Eosinophils (%) (Auto) 5.4 % (0.0-4.0) 4.6 % (0.0-4.0) Lymphocytes # (Auto) 0.6 TH/MM3 (1.0-4.8) 0.7 TH/MM3 (1.0-4.8) Random Glucose 61 MG/DL (74-106) Total Protein 4.3 GM/DL (6.4-8.2) Calcium Level 5.9 MG/DL (8.5-10.1) Sodium Level 147 MEQ/L (136-145) Potassium Level 2.8 MEQ/L (3.5-5.1) Chloride Level 118 MEQ/L (98-107) Estimat Glomerular Filtration Rate 80 ML/MIN (>89) 51 ML/MIN (>89) Protein Corrected Calcium 7.2 MG/DL (8.5-10.1) Lymphocytes (%) (Auto) 7.9 % (9.0-44.0) Creatinine 1.03 MG/DL (0.50-1.00) Urine Mucus FEW /lpf (OCC) PE at Discharge GENERAL: This is a well-nourished, well-developed patient, in wrist restraints SKIN: Sutured laceration right scalp HEAD: Traumatic with intact sutures. Normocephalic EYES: Pupils equal round and reactive. Extraocular motions intact. No scleral icterus. No injection or drainage. ENT: Nose without bleeding, purulent drainage NECK: Trachea midline. No JVD CARDIOVASCULAR: Regular rate with 2/6 systolic click. RESPIRATORY: Clear to auscultation. Breath sounds equal bilaterally. No wheezes , rales, or rhonchi. GASTROINTESTINAL: Abdomen soft, non-tender, nondistended. No hepato-splenomegaly , or palpable masses. No guarding. MUSCULOSKELETAL: Extremities without clubbing, cyanosis, or edema. Neuro- Awake and alert x self Hospital Course Presented s/p fall with head laceration, sutured in ER, blood transfusion was not required. Patient on Coumadin. Does have history of dementia seen by Neuro, will follow up as outpatient. She was started on Risperdal 2.5 bis for increase behaviors and hallucinations. She also had episode of HTN, Norvasc added to home medications. Coumadin restated on 09/28/17. Pt Condition on Discharge: Stable Discharge Disposition: Discharge to SNF Discharge Instructions DIET: Follow Instructions for: As Tolerated, No Restrictions Activities you can perform: Regular-No Restrictions Follow up Referrals: Appointment for Follow Up - [address] Ortega New Medications: Amlodipine (Norvasc) 5 Mg Tab 5 MG PO BID for Blood Pressure Management for 30 Days, #60 TAB Risperidone (Risperdal) 0.25 Mg Tab 0.25 MG PO Q12HR for Rash for 30 Days, TAB Continued Medications: Acetaminophen (Mapap) 325 Mg Tab 325 MG PO Q4-6H PRN for PAIN SCALE 1 TO 2, TAB 0 Refills Alprazolam (Alprazolam) 0.25 Mg Tab 0.25 MG PO Q8H PRN for ANXIETY, TAB 0 Refills Citalopram (Citalopram) 10 Mg Tab 10 MG PO DAILY for Control Depression, #30 TAB 0 Refills Metoprolol Succinate ER 24 HR (Metoprolol Succinate ER 24 HR) 25 Mg Tab 25 MG PO DAILY, #30 TAB 0 Refills Warfarin (Warfarin) 5 Mg Tab 5 MG PO DAILY for Blood Clot Prevention, #30 TAB 0 Refills Warfarin (Warfarin) 2.5 Mg Tab 2.5 MG PO DAILY for Blood Clot Prevention, #30 TAB 0 Refills Additional Information PT/INR qday until INR therapeutic. Coumadin restarted on 09/28/17. Kassie Mccabe Sep 30, 2017 09:01
[2017-09-30] MEDS ORDERED: AMLO5 PO (09:02)
[2017-09-30 09:44] LABS: AUTOMATED NEUTROPHIL # 5.4 TH/MM3 (1.8-7.7); BASOPHIL % 0.3 % (0.0-2.0); EOSINOPHIL # 0.3 TH/MM3 (0-0.4); EOSINOPHIL % 4.9 % (0.0-4.0); HEMOGLOBIN 16.6 GM/DL (11.6-15.3); LYMPH % 8.5 % (9.0-44.0); LYMPHOCYTE # 0.6 TH/MM3 (1.0-4.8); MEAN CELL VOLUME 92.8 FL (80.0-100.0); MEAN CORPUSCULAR HEMOGLOBIN 32.2 PG (27.0-34.0); MEAN CORPUSCULAR HGB CONC 34.7 % (32.0-36.0); MEAN PLATELET VOLUME 7.6 FL (7.0-11.0); MONO % 5.9 % (0.0-8.0); MONOCYTE # 0.4 TH/MM3 (0-0.9); NEUT % 80.4 % (16.0-70.0); PLATELET COUNT 209 TH/MM3 (150-450); RED BLOOD COUNT 5.17 MIL/MM3 (4.00-5.30); RED CELL DISTRIBUTION WIDTH 14.5 % (11.6-17.2); WHITE BLOOD COUNT 6.8 TH/MM3 (4.0-11.0)
[2017-09-30 09:51] LABS: INTERNATIONAL NORMALIZED RATIO 1.4 RATIO; PROTHROMBIN TIME - PATIENT 13.8 SEC (9.8-11.6)
[2017-09-30 09:57] LABS: BICARBONATE 24.7 MEQ/L (21.0-32.0); CREATININE 0.96 MG/DL (0.50-1.00)
--- NOTE | 2017-10-04 19:42 | PQ ---
Physician Query Response Document PATIENT: CHRISTOPHER HOLCOMB : 1930 ADMIT DATE: 09/25/2017 7:22 AM DISCH DATE: 09/30/2017 11:07 AM RESPONDING PROVIDER #: Michael QUERY TEXT: Clarification of Clinical Diagnostic Findings Coumadin-induced acute hemorrhage in setting of post fall scalp laceration treated emergently w/ 2 un its of PRBCs and trauma surgeon consult. Other explanation of clinical findings. Unable to determine (no explanation for clinical findings). Please clarify and document your clinical opinion in the progress notes and discharge summary includi ng the definitive and/or presumptive diagnosis (suspected or probable), related to the above clinical findings. Please include clinical findings supporting your diagnosis. Thank you, Tamara Arechiga CDS: Tamara Arechiga Patient Unit: [id number] Contact Number: Room: [facility] The patient's Clinical Indicators include: * Clinical Indicators: INR 3.6, difficulty controlling significant blood loss * Risk Factors: Coumadin w/ INR 3.6 * Treatment: 2 units of emergency release PRBCs were ordered as well as 2 units of FFP, difficult raymond e controlling the bleeding with direct pressure as well as irmqrf-nj-itvax sutures, requiring trauma surgeon to repair scalp wound Query created by: Tamara Arechiga on 09/27/2017 12:00 AM RESPONSE TEXT: Pt had copious bleeding from a scalp laceration while taking coumadin with a supratheraputic INR of 3 .6 requiring transfusion of two units PRBC Electronically signed by: Rod Greene MD 10/04/2017 7:38 PM
--- NOTE | 2017-10-28 19:46 | PD.OP ---
Operative Report Date of Surgery: Sep 25, 2017 Preoperative Diagnosis: 5 cm parietal scalp laceration Postoperative Diagnosis: 5 cm parietal scalp laceration Procedure: Intermediate closure of 5 cm parietal scalp laceration with control of hemorrhage Anesthesia: None Surgeon: Johnson Lisa Scrap Materials Buyer(s): NONE Resident Surgeon: None Operation and Findings: I was called to address a 5 cm parietal scalp laceration that was actively bleeding despite attempted closure. On arrival there was bleeding through the wound despite interrupted [id number] suture is placed in the skull. The sutures were removed the wound was opened and inspected it was irrigated out. Hemostasis was obtained by applying 3-0 Vicryl sutures in the subcutaneous tissue where the vessels were identified. The wound was deemed hemostatic at this point. Because she was supratherapeutic on Coumadin the wound was closed with running 3-0 Prolene suture instead of lisa. The wound was again inspected and deemed hemostatic. She tolerated the procedure well there were no complications. Johnson Lisa MD Oct 28, 2017 19:46
== END 2017-09-30 11:07 | DRG 983 ==
LOC: NEPE 04:02 → NEDA 07:22 → NEDH 11:25 → N05A 12:34
PROVIDERS: ADMIT Family Medicine; ATTEND Family Medicine
PROC: 0W300ZZ Control Bleeding in Head, Open Approach (ICD-10-PCS; principal; 2017-09-25)
PROC: 0HQ0XZZ Repair Scalp Skin, External Approach (ICD-10-PCS; 2017-09-25)
PROC: 30233N1 Transfusion of Nonautologous Red Blood Cells into Peripheral Vein, Percutaneous Approach (ICD-10-PCS; 2017-09-25)
DX: D68.32 Hemorrhagic disorder due to extrinsic circulating anticoagulants (principal); F03.90 Unspecified dementia, unspecified severity, without behavioral disturbance, psychotic disturbance, mood disturbance, and anxiety; E83.51 Hypocalcemia; Z78.1 Physical restraint status; S01.01XA Laceration without foreign body of scalp, initial encounter; X58.XXXA Exposure to other specified factors, initial encounter; Y92.098 Other place in other non-institutional residence as the place of occurrence of the external cause; I10 Essential (primary) hypertension; Z95.2 Presence of prosthetic heart valve; Z79.01 Long term (current) use of anticoagulants; E87.6 Hypokalemia; R35.0 Frequency of micturition
CPT/HCPCS: 36430; 70450; 71260; 72125; 72129; 72132; 74177; 80048; 80053; 81001; 82607; 84155; 84439; 84443; 85025; 85610; 85730; 86850; 86900; 86901; 86920; 90471; 90715; 95819; 96365; 96375; J0610; J0690; J2270; J3480; J7030; P9016; Q9967

== ENCOUNTER 2017-10-30 03:50 | Emergency (ER) | payer MEDICARE, BC ==
[~2017-10-30] VITALS: Ht 165.1 cm; Wt 56.0 kg
[~2017-10-30 03:50] MED LIST changes: +ALPR0.25 PO; +AMLO5 PO; -AMLO5TAB22 PO; -ARIC5TAB PO; -ATOR10 PO; -CALC600T34 PO; +CITA10TA4 PO; -COUM5TAB PO; +MAPA325T PO; +METO1TAB42 PO; -METO25TA6 PO; +RISP.25 PO; -TAB-TAB PO; -VITA100032 PO; +WARF-18 PO; +WARF-23 PO
[2017-10-30 03:56] VITALS: BP 133/60; PULSE 48; RESP 16; TEMP 97.6; O2SAT 96
[2017-10-30] MEDS ORDERED: CELE20TA PO (04:35)
[2017-10-30] MEDS ORDERED: LOPE1SUS PO (04:35)
[2017-10-30] MEDS ORDERED: BISC10SU RECTAL (04:35)
--- NOTE | 2017-10-30 06:09 | RADRPT ---
EXAM DATE/TIME: 10/30/2017 05:40 [facility] COMPARISON: CT BRAIN W/O CONTRAST, September 28, 2017, 23:27. INDICATIONS : Trauma. Fall. RADIATION DOSE: 56.34 CTDIvol (mGy) MEDICAL HISTORY : Cardiovascular disease. Hypertension. Carcinoma, colon. SURGICAL HISTORY : Colon resection. Heart valve replacement ENCOUNTER: Initial ACUITY: 1 day PAIN SCALE: 0/10 LOCATION: cranial TECHNIQUE: Multiple contiguous axial images were obtained of the head. Using automated exposure control and adj ustment of the mA and/or kV according to patient size, radiation dose was kept as low as reasonably a chievable to obtain optimal diagnostic quality images. DICOM format image data is available electro nically for review and comparison. FINDINGS: CEREBRUM: Old left basal ganglia and right caudate nucleus lacunar infarcts. No evidence of acute intracranial hemorrhage or extra-axial fluid collection. No mass effect or midline shift. Ventricles within normal limits. Mobley matter and white matter dictation within normal limits. Periventricular white matter ch ronic ischemic changes again seen. POSTERIOR FOSSA: The cerebellum and brainstem are intact. The 4th ventricle is midline. The cerebellopontine angle i s unremarkable. EXTRACRANIAL: Mild left maxillary sinus mucosal thickening. SKULL: The calvaria is intact. No evidence of skull fracture. CONCLUSION: Chronic ischemic findings. No evidence of acute infarct, hemorrhage, or mass lesion. Sebastian Posey MD on October 30, 2017 at 6:05 Board Certified Radiologist. This report was verified electronically.
[2017-10-30] MEDS ORDERED: TETANUS/DIPHTHERIA TOXOID ADULT 0.5 ML VIAL IM ONE (06:30)
--- NOTE | 2017-10-30 07:03 | PD ---
HPI Chief Complaint: Fall Time Seen by Provider: 03:54 Travel History International Travel<30 days: No Contact w/Intl Traveler<30days: No Traveled to known affect area: No History of Present Illness HPI Patient is from a fdc she was found down she had fallen and hit her head and has a pain in her left hip as well as a slight superficial abrasion with a little bit of blood to her occipital PFSH Past Medical History Hx Anticoagulant Therapy: Yes (WARFARIN) Arthritis: Yes Blood Disorders: No Heart Rhythm Problems: Yes (ATRIAL FLUTTER) Cancer: Yes (COLON) Cardiovascular Problems: Yes (HTN) High Cholesterol: Yes Chemotherapy: Yes (1996) Endocrine: No Gastrointestinal Disorders: No Genitourinary: Yes Hypertension: Yes Immune Disorder: No Implanted Vascular Access Dvce: Yes Musculoskeletal: Yes Neurologic: Yes Psychiatric: No Reproductive: No Respiratory: No Radiation Therapy: No ?: Not Past Surgical History Abdominal Surgery: Yes (PARTIAL COLECTOMY ) Body Medical Devices: HEART VALVE (PIG),LOOP RECORDER Cardiac Surgery: Yes (VALVE REPL. 09/2007) Eye Surgery: Yes (CATARACT EXTR. BILAT.) Other Surgery: Yes Social History Alcohol Use: No Tobacco Use: No Substance Use: No Allergies-Medications (Allergen,Severity, Reaction): Coded Allergies: No Known Allergies (Verified Adverse Reaction, Unknown, 10/30/17) Reported Meds & Prescriptions Reported Meds & Active Scripts Active Tramadol (Tramadol HCl) 50 Mg Tab 50 Mg PO Q8H PRN Reported Celexa (Citalopram Hydrobromide) 20 Mg Tab 20 Mg PO TID Loperamide Liq (Loperamide HCl) 1 Mg/7.5 Ml Liq 4 Mg PO PRN Biscolax Supp (Bisacodyl) 10 Mg Supp 10 Mg RECTAL DAILY PRN Metoprolol Succinate ER 24 HR (Metoprolol Succinate) 25 Mg Tab 25 Mg PO DAILY Mapap (Acetaminophen) 325 Mg Tab 325 Mg PO Q4-6H PRN Alprazolam 0.25 Mg Tab 0.25 Mg PO Q8H PRN Warfarin 2.5 Mg Tab 2.5 Mg PO DAILY Warfarin 5 Mg Tab 5 Mg PO DAILY Review of Systems ROS Limitations: Poor Historian Physical Exam Narrative GENERAL: wake ox1 SKIN: Warm and dry. HEAD: Atraumatic. Normocephalic. EYES: Pupils equal and round. No scleral icterus. No injection or drainage. ENT: No nasal bleeding or discharge. Mucous membranes pink and moist. NECK: Trachea midline. No JVD. CARDIOVASCULAR: Regular rate and rhythm. RESPIRATORY: No accessory muscle use. Clear to auscultation. Breath sounds equal bilaterally. GASTROINTESTINAL: Abdomen soft, non-tender, nondistended. Hepatic and splenic margins not palpable. MUSCULOSKELETAL: Extremities mild pain reaction with hip inversion . NEUROLOGICAL: awake no obvious focal deficits Data Data Last Documented VS Orders Orders Electrocardiogram (10/30/17 ) Ct Brain W/O Iv Contrast(Rout) (10/30/17 ) Hip, Lat Only W Ap Pelvis (10/30/17 ) Tetanus/Diphtheria Tox Adult (Tetanus/Di (10/30/17 06:30) Ct Hip W/O Contrast (10/30/17 ) Morphine Inj (Morphine Inj) (10/30/17 07:45) Ondansetron Inj (Zofran Inj) (10/30/17 07:45) Ed Discharge Order (10/30/17 08:48) MDM Medical Decision Making Medical Screen Exam Complete: Yes Emergency Medical Condition: Yes Differential Diagnosis hip fracture vs hip contusion vs intracranial injury vs intraabdominal injury other, Narrative Course pt has Xray that is questionable for hip fracture L and I will have to do a CT to rule out possible occult non displaced fracture. Diagnosis Primary Impression: Contusion, hip Scripts Tramadol (Tramadol) 50 Mg Tab 50 MG PO Q8H Y for PAIN, #12 TAB 0 Refills Prov: Rivka Sánchez MD 10/30/17 Eric Whitney MD Oct 30, 2017 07:03
--- NOTE | 2017-10-30 07:16 | RADRPT ---
EXAM DATE/TIME: 10/30/2017 06:40 [facility] COMPARISON: CT LUMBAR SPINE W CONTRAST, September 25, 2017, 5:16. INDICATIONS : Trauma due to fall. MEDICAL HISTORY : Hypertension. Carcinoma, colon. SURGICAL HISTORY : Rt. hip replacement. ENCOUNTER: Initial ACUITY: 1 day PAIN SCORE: 10/10 LOCATION: Left hip FINDINGS: Multiple views of the left hip demonstrate a linear sclerotic line traversing the left femoral neck. This is seen on all views. Concern is for a nondisplaced fracture. The remainder of the pelvis demons trate stable severe degenerative changes within the lumbar spine as a total right hip prosthesis whic h appears intact. CONCLUSION: Concern for nondisplaced fracture of the left femoral neck. Jenn Szymanski MD on October 30, 2017 at 7:10 Board Certified Radiologist. This report was verified electronically.
[2017-10-30 07:26] VITALS: BP 137/67; PULSE 62; RESP 17; TEMP 98.1; O2SAT 94
[2017-10-30] MEDS ORDERED: ONDANSETRON HCL 4 MG/2 ML VIAL IV PUSH ONE (07:45)
[2017-10-30] MEDS ORDERED: MORPHINE SULFATE 2 MG/ML SYRINGE IV PUSH ONE (07:45)
--- NOTE | 2017-10-30 08:29 | RADRPT ---
EXAM DATE/TIME: 10/30/2017 08:02 [facility] COMPARISON: No previous studies available for comparison. INDICATIONS : Trauma, patient fell. Evaluate for left hip fracture. RADIATION DOSE: 41.28 CTDIvol (mGy) MEDICAL HISTORY : Hypertension. Carcinoma, colon. SURGICAL HISTORY : valve replacement, colon resection ENCOUNTER: Initial ACUITY: 1 day PAIN SCALE: 10/10 LOCATION: Left hip TECHNIQUE: Volumetric scanning of the hip was performed. Using automated exposure control and adjustment of the mA and/or kV according to patient size, radiation dose was kept as low as reasonably achievable to o btain optimal diagnostic quality images. DICOM format image data is available electronically for rev iew and comparison. FINDINGS: BONES: No evidence of fracture. Alignment is within normal limits. There are severe degenerative changes pr esent within the left hip. Ring osteophytes surrounding the left femoral head correlate with the line ar sclerotic line seen on comparison plain film. JOINTS: No evidence of joint narrowing or effusion. SOFT TISSUES: Soft tissues are significant for a well-circumscribed simple-appearing 4.8 cm left ovarian cyst consi stent with a cystadenoma. CONCLUSION: 1. No evidence of fracture. The linear sclerotic line seen on comparison plain film corresponds to ri ng osteophytes surrounding the left femoral head. 2. Well-circumscribed simple appearing 4.8 cm left ovarian cyst. Findings are consistent with a cysta denoma. Recommend followup ultrasound in 6 months.. Jenn Szymanski MD on October 30, 2017 at 8:23 Board Certified Radiologist. This report was verified electronically.
[2017-10-30] MEDS ORDERED: TRAM50TA PO (08:51)
--- NOTE | 2017-10-30 08:51 | PD ---
Physical Exam Date Seen by Provider: Oct 30, 2017 Time Seen by Provider: 07:00 Narrative Patient signed out to me at [address] Whitney, please see Dr. Whitney's notes for further details. She had fallen, was complaining of hip pain, initial x-ray was questionable for nondisplaced fracture and CAT scan was ordered for her radiology reading, and CAT scan did not show any signs of acute fracture. At this point, patient will be released back to facility. Return for any worsening in pain or new symptoms as needed. Fall precautions. Last 24 hours Impressions Lower Extremity CT 10/30/17 0000 Signed Impressions: Service Date/Time: Monday, October 30, 2017 08:02 - CONCLUSION: 1. No evidence of fracture. The linear sclerotic line seen on comparison plain film corresponds to ring osteophytes surrounding the left femoral head. 2. Well-circumscribed simple appearing 4.8 cm left ovarian cyst. 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 Recommend followup ultrasound in 6 months.. Jenn Szymanski MD Hip and Pelvis X-Ray 10/30/17 0000 Signed Impressions: Service Date/Time: Monday, October 30, 2017 06:40 - CONCLUSION: Concern for nondisplaced fracture of the left femoral neck. Jenn Szymanski MD Head CT 10/30/17 0000 Signed Impressions: Service Date/Time: Monday, October 30, 2017 05:40 - CONCLUSION: Chronic ischemic findings. No evidence of acute infarct, hemorrhage, or mass lesion. Sebastian Posey MD Data Data Last Documented VS Vital Signs Date Time Temp Pulse Resp B/P (MAP) Pulse Ox O2 Delivery O2 Flow Rate FiO2 10/30/17 08:46 16 10/30/17 08:45 Nasal Cannula 2.00 10/30/17 07:26 98.1 62 94 Orders Orders Electrocardiogram (10/30/17 ) Ct Brain W/O Iv Contrast(Rout) (10/30/17 ) Hip, Lat Only W Ap Pelvis (10/30/17 ) Tetanus/Diphtheria Tox Adult (Tetanus/Di (10/30/17 06:30) Ct Hip W/O Contrast (10/30/17 ) Morphine Inj (Morphine Inj) (10/30/17 07:45) Ondansetron Inj (Zofran Inj) (10/30/17 07:45) Ed Discharge Order (10/30/17 08:48) [facility] Medical Record Reviewed: Yes Supervised Visit with JONE: No Diagnosis Primary Impression: Contusion, hip Additional Impression: Fall Med/Other Pt SpecificInfo: Prescription(s) given Scripts Tramadol (Tramadol) 50 Mg Tab 50 MG PO Q8H Y for PAIN, #12 TAB 0 Refills Prov: Rivka Sánchez MD 10/30/17 Disposition: 03 DISCHARGE TO SNF Condition: Stable Rivka Sánchez MD Oct 30, 2017 08:51
[2017-10-30 09:41] VITALS: BP 116/58; PULSE 53; RESP 15; TEMP 98.7; O2SAT 97
[2017-10-30 10:42] VITALS: BP 148/63; PULSE 61; RESP 16; TEMP 98.2; O2SAT 95
[2017-10-30 11:50] VITALS: BP 147/64; PULSE 54; RESP 18; TEMP 97.8; O2SAT 94
--- NOTE | 2017-10-30 14:46 | EKG ---
Date Performed: 10/30/2017 Time Performed: 04:18:23 PTAGE: 87 years EKG: Sinus bradycardia with first degree AV block ME interval is .[address]-T wa ve change PREVIOUS TRACING : 05/28/2014 20.59 Since previous tracing, atrial flutter has converted to sinus bradycardia. DOCTOR: Jovi El Interpretating Date/Time 10/30/2017 14:46:10
== END 2017-10-30 12:34 ==
LOC: NEPC 03:50
DX: S70.02XA Contusion of left hip, initial encounter (principal); N83.202 Unspecified ovarian cyst, left side; R00.1 Bradycardia, unspecified; I44.0 Atrioventricular block, first degree; I48.92 Unspecified atrial flutter; I10 Essential (primary) hypertension; W22.8XXA Striking against or struck by other objects, initial encounter; Y92.129 Unspecified place in nursing home as the place of occurrence of the external cause; Z23 Encounter for immunization
CPT/HCPCS: 70450; 73501; 73700; 90471; 90714; 93005; 96374; 96375; 99284; J2270; J2405